=== PATIENT | male | born 1945 | race Caucasian/White ===

== ENCOUNTER 2016-11-04 09:28 | Day surgery (SDC) | payer MEDICARE, OTHER ==
[~2016-11-04 09:28] MED LIST: Lactated Ringers 1,000 ML IV SCH
[2016-11-04] MEDS ORDERED: fentaNYL 100 MCG/2 ML SDV ONE (11:19)
[2016-11-04] MEDS ORDERED: Propofol 200 MG/20 ML SDV ONE (11:19)
[2016-11-04 13:32] VITALS: BP 126/59
--- NOTE | 2016-11-04 18:13 | OR ---
PREOPERATIVE DIAGNOSIS: Positive Fit test. First colonoscopic exam. POSTOPERATIVE DIAGNOSIS: Normal colonoscopic exam. PROCEDURE PROPOSED: Total flexible colonoscopy. PROCEDURE DONE: Total flexible colonoscopy. INDICATION: This is a 70-year-old gentleman who was found to have a positive Fit test on recent physical, and he was referred for his first colonoscopic exam for screening purposes. TECHNIQUE: The patient was brought to the endoscopy suite, placed in left lateral decubitus position. He was sedated with propofol per GRIEF COUNSELLOR. A flexible video colonoscope was then passed transanally and under visualization advanced to the cecum. Examination revealed a normal ascending, transverse, descending, sigmoid, and rectal colon. There was no evidence of any diverticulosis, polyps, colitis, or any other abnormalities. The scope was then withdrawn. The patient tolerated the procedure well. IMPRESSION: Essentially, normal colonoscopic exam. PLAN: The patient is reassured. I felt that he should be good for 10 years before he needs a repeat exam and he would be at that time and would be depending on his health whether he needs it done or not. SCM: 11/04/2016 12:20:58 MODL: 11/04/2016 14:14:26 /[id number]
== END 2016-11-04 13:30 | disposition home or self-care (01) ==
LOC: VM.SDS 09:28
PROVIDERS: ATTEND Surgery
DX: Z12.11 Encounter for screening for malignant neoplasm of colon (principal); I25.10 Atherosclerotic heart disease of native coronary artery without angina pectoris; I73.9 Peripheral vascular disease, unspecified; I65.29 Occlusion and stenosis of unspecified carotid artery; E78.5 Hyperlipidemia, unspecified; I10 Essential (primary) hypertension; I25.2 Old myocardial infarction; K21.9 Gastro-esophageal reflux disease without esophagitis; I48.91 Unspecified atrial fibrillation; Z87.11 Personal history of peptic ulcer disease; Z79.02 Long term (current) use of antithrombotics/antiplatelets; Z87.891 Personal history of nicotine dependence; Z79.899 Other long term (current) drug therapy; Z90.49 Acquired absence of other specified parts of digestive tract; Z98.890 Other specified postprocedural states; Z95.5 Presence of coronary angioplasty implant and graft
CPT/HCPCS: G0121; J2704; J3010; J7120; 00810

== ENCOUNTER 2017-11-12 07:01 | Day surgery (SDC) | payer MEDICARE, OTHER ==
[2017-11-12] MEDS ORDERED: Bupivacaine 0.25%/EPINEPHrine 1:200,000 30 ML SDV ONE (07:46)
[2017-11-12] MEDS ORDERED: Succinylcholine 200 MG/10 ML MDV ONE ×2 (08:25→08:28)
[2017-11-12] MEDS ORDERED: Rocuronium 50 MG/5 ML Vial ONE (08:25)
[2017-11-12] MEDS ORDERED: Ondansetron 4 MG/2 ML SDV ONE (08:25)
[2017-11-12] MEDS ORDERED: fentaNYL 100 MCG/2 ML SDV ONE (08:26)
[2017-11-12] MEDS ORDERED: Propofol 200 MG/20 ML SDV ONE (08:27)
[2017-11-12] MEDS ORDERED: ePHEDrine 50 MG/ML SDV ONE (08:51)
[2017-11-12] MEDS ORDERED: Bupivacaine 0.25%/EPINEPHrine 1:200,000 30 ML SDV INFILT ONE ×2 (08:56)
[2017-11-12] MEDS ORDERED: ceFAZolin 1 GM Vial ONE (08:58)
[2017-11-12] MEDS ORDERED: Dexamethasone 10 MG/ML SDV ONE (08:59)
[2017-11-12] MEDS ORDERED: Neostigmine Methylsulfate 10 MG/10 ML MDV ONE (09:23)
[2017-11-12] MEDS ORDERED: Glycopyrrolate 0.2 MG/ML 2 ML SDV ONE (09:23)
--- NOTE | 2017-11-12 10:26 | OR ---
PREOPERATIVE DIAGNOSIS: Right direct inguinal hernia. POSTOPERATIVE DIAGNOSIS: Right direct inguinal hernia. PROCEDURE PROPOSED AND PROCEDURE DONE: Right direct inguinal hernia repair with mesh. DRIVE SHAFT AND STEERING POST REPAIRER: Massimo. INDICATION: This is a 71-year-old gentleman with a moderate-sized right inguinal hernia that is increasing in size over the last few years. I had done a previous left-sided repair 2-3 years ago and he comes in now for elective right inguinal hernia repair. TECHNIQUE: The patient was brought to the operative suite, given general endotracheal anesthetic, the surgical site had been marked. The right groin was trimmed and sterilely prepped and draped. An oblique incision was made in the right groin after locally anesthetizing the skin with 0.25% Marcaine with epinephrine. Dissection was carried down through the subcutaneous tissue to the underlying external oblique fascia. A self-retaining retractor was put in position. The external oblique fascia was then opened along the direction of fibers through the external ring. The ilioinguinal nerve was isolated and preserved throughout the dissection. The patient was found to have a large direct hernia sac coming right through the inguinal floor. The inguinal cord was from the hernia sac. A [employer] drain was passed around the cord. The hernia was then reduced and held in place with a large plug of mesh, which was anchored circumferentially with interrupted 0 Ethibond sutures. A piece of a keyhole flat mesh was then fashioned to the appropriate size and placed across the inguinal floor, anchored medially to the symphysis pubis, inferiorly to the inguinal ligament, superiorly to the internal and oblique fashion placed around the cord and anchored to the tissue. This was all performed with interrupted 0 Ethibond sutures. The cord and nerve were then placed back in the normal position as the external oblique fascia was closed over the cord with a running 3-0 Vicryl. Subcutaneous tissue reapproximated with interrupted 3-0 Vicryl and the skin closed with a subcuticular stitch of 4-0 Vicryl. A sterile dressing was applied. He tolerated the procedure well with minimal blood loss, was awakened and taken to recovery room in good condition. SCM: 11/12/2017 09:48:00 MODL: 11/12/2017 10:17:40 /[id number]
[2017-11-12 10:44] VITALS: BP 110/51
[2017-11-12] MEDS ORDERED: Acetaminophen/oxyCODONE 325-5 MG Tab PO PRN (10:45)
== END 2017-11-12 11:40 | disposition home or self-care (01) ==
LOC: VM.SDS 07:01
PROVIDERS: ATTEND Surgery
DX: K40.90 Unilateral inguinal hernia, without obstruction or gangrene, not specified as recurrent (principal); K21.9 Gastro-esophageal reflux disease without esophagitis; I25.10 Atherosclerotic heart disease of native coronary artery without angina pectoris; I10 Essential (primary) hypertension; I25.2 Old myocardial infarction; E78.5 Hyperlipidemia, unspecified; Z79.02 Long term (current) use of antithrombotics/antiplatelets; Z79.82 Long term (current) use of aspirin; Z79.899 Other long term (current) drug therapy; Z87.891 Personal history of nicotine dependence
CPT/HCPCS: 49505; A9270; C1781; J0330; J0690; J1100; J2405; J2704; J2710; J3010; J7120; 00834; J3490

== ENCOUNTER 2021-03-08 12:17 | Emergency (ER) | payer MEDICARE, OTHER ==
--- NOTE | 2021-03-08 12:41 | EDM.PDOC ---
ED HPI GENERAL MEDICAL PROBLEM - General Stated Complaint: BLEEDING POST SURGERY Time Seen by Provider: 03/08/21 12:41 Source of Information: Reports: Patient, RN, RN Notes Reviewed History Limitations: Reports: No Limitations - History of Present Illness INITIAL COMMENTS - FREE TEXT/NARRATIVE: Patient is a 75-year-old male who presents to ER with his with complaint of postop incisional bleeding from right knee surgery. Patient states surgery was , he was discharged yesterday, Wednesday. Patient states he was up and around doing passive ROM exercises per instructions from his surgeon when he noticed blood running down his leg. Patient states he had done therapy while in the hospital and had no issues with bleeding, pain, otherwise. Denies pain at this time. Patient states he remove the Patrice wrap yesterday, states he has been icing the knee as instructed. Patient states he is on Eliquis as well as Coreg. Patient also c/o intermittent dizziness. Patient states his BP has been low on and off since the surgery. States he takes both Lisinopril and Amlodipine for his BP. Onset: Today, Sudden - Related Data Allergies Allergy/AdvReac Type Severity Reaction Status Date / Time No Known Allergies Allergy Verified 11/12/17 07:36 Home Meds: Home Meds Clopidogrel [Plavix] 75 mg PO DAILY 05/10/13 [History] Multivitamin with Minerals [Multiple Vitamin] 1 tab PO DAILY 05/10/13 [History] Nitroglycerin [Nitrostat] 0.4 mg SL ASDIRECTED PRN 05/10/13 [History] amLODIPine [Norvasc] 10 mg PO DAILY 05/10/13 [History] carvediloL [Coreg] 12.5 mg PO BID 05/10/13 [History] lisinopriL [Prinivil] 20 mg PO DAILY 05/10/13 [History] ALPRAZolam [Xanax] 0.25 mg PO BEDTIME PRN 01/28/15 [History] Omeprazole [Prilosec] 20 mg PO DAILY PRN 01/28/15 [History] Aspirin [Halfprin] 81 mg PO DAILY 11/02/16 [History] Pravastatin Sodium 10 mg PO DAILY 11/02/16 [History] Melatonin 3 mg PO BEDTIME 11/10/17 [History] Past Medical History HEENT History: Reports: None Cardiovascular History: Reports: Afib, CAD, High Cholesterol, Hypertension, [place], PVD Other Cardiovascular History: stemi. ventricular tachy. external iliac artrery thrombosis. femoral bruit. coronary stent thrombosis Respiratory History: Reports: Sleep Apnea Gastrointestinal History: Reports: GERD, PUD Genitourinary History: Reports: None Musculoskeletal History: Reports: None Neurological History: Reports: None Psychiatric History: Reports: None, Other (See Below) Other Psychiatric History: insomnia Endocrine/Metabolic History: Reports: Other (See Below) Other Endocrine/Metabolic History: hyperglycemia Hematologic History: Reports: None Immunologic History: Reports: None Oncologic (Cancer) History: Reports: None Dermatologic History: Reports: None - Past Surgical History Head Surgeries/Procedures: Reports: None HEENT Surgical History: Reports: None Cardiovascular Surgical History: Reports: Cardiac Ablation, Carotid Stents, Other (See Below) Other Cardiovascular Surgeries/Procedures: angiogram GI Surgical History: Reports: Appendectomy, Hernia, Inguinal Musculoskeletal Surgical History: Reports: None Oncologic Surgical History: Reports: None Review of Systems - Review of Systems Review Of Systems: See Below ED EXAM, GENERAL - Physical Exam Exam: See Below Exam Limited By: No Limitations General Appearance: Alert, WD/WN, No Apparent Distress Eye Exam: Bilateral Eye: EOMI, Normal Inspection Ears: Normal External Exam, Hearing Grossly Normal Nose: Normal Inspection Throat/Mouth: Normal Inspection, Normal Voice, No Airway Compromise Head: Atraumatic, Normocephalic Neck: Normal Inspection, Supple, Non-Tender, Full Range of Motion Respiratory/Chest: No Respiratory Distress, Lungs Clear, Normal Breath Sounds, No Accessory Muscle Use, Chest Non-Tender Cardiovascular: Normal Peripheral Pulses, Regular Rate, Rhythm, No Edema, No Gallop, No JVD, No Murmur, No Rub Peripheral Pulses: 2+: Dorsalis Pedis (L), Dorsalis Pedis (R) GI/Abdominal: Normal Bowel Sounds, Soft, Non-Tender (Male) Exam: Deferred Rectal (Males) Exam: Deferred Back Exam: Normal Inspection, Full Range of Motion, NT Extremities: Joint Swelling (right knee post op), Limited Range of Motion (right knee, post op) Neurological: Alert, Oriented, CN II-XII Intact, Normal Cognition Psychiatric: Normal Affect, Normal Mood Skin Exam: Warm, Dry, Intact, Normal Color, No Rash Lymphatic: No Adenopathy ED TRAUMA EXTREMITY PROCEDURES - Additional/Other Procedure(s) Other (Free Text) Procedure(s): Post op dressing removed, cleaned with dry sterile 4x4. Pressure held manually at pinpoint area at the lower portion of the incision for 10 minutes. No oozing noted after pressure held. New Optifoam silver post op/surgical wound dressing applied. Departure - Departure Time of Disposition: 13:07 Disposition: Home, Self-Care 01 Condition: Good Clinical Impression: Postoperative bleeding from incision - Discharge Information *PRESCRIPTION DRUG MONITORING PROGRAM REVIEWED*: No *COPY OF PRESCRIPTION DRUG MONITORING REPORT IN PATIENT BOO: No Additional Instructions: Return to the ER with any worsening of problems Call you surgeon on Wednesday and follow up as directed Follow up with Dr. Brandon regarding your Blood pressure medications. Monitor BP at home.
[2021-03-08 14:05] VITALS: BP 94/45; PULSE 64
--- OUTSIDE RECORDS SUMMARY | 2021-03-10 08:06 | XMSREPORT ---
:1945 Author Organization and [facility] Address [address] [place] [address] [address] [place] [address] Care Team Providers Name Role Phone Brenton Primary Care Provider DO Brenton Attributed Provider Reason for Visit Auth/Cert (Routine) Status Reason Specialty Diagnoses / Referred By Referred To Procedures Contact Contact Continuity of Diagnoses Unilateral primary osteoarthritis, right knee Peripheral vascular disease, unspecified Mark Watson, Care Procedures ARTHROPLASTY KNEE CONDYLE & PLATEAU MEDIAL & LAT COMPARTMENTS MAUREEN BURRIS MD [address] [place] [address] [place] [address] Encounter Details Date Type Department Care Team Description 03/06/2021 - [facility] Shirley Mark, Primary 03/07/2021 Encounter [place] [facility] osteoarthritis of [address] [place] [address] [place] [address] L[place] [address] [phone] Allergies Active Allergy Reactions Severity Noted Date Comments Hmg-Coa-R Inhibitors Statin Contraindication - 019 Intolerance documented as of this encounter (statuses as of 03/07/2021) Medications Medication Sig Dispensed Refills Start Date End Date Status omeprazole (PRILOSEC) TAKE 1 CAPSULE 90 capsule 3 08/22/2020 Active 20 mg BY MOUTH EVERY capsuleIndications: DAY NEEDED Gastroesophageal reflux FOR HEARTBURN disease without esophagitis Additional Information Patient taking differently: 20 mg Oral One time a day prn, heartburn, Reported on 03/06/2021 Hemp Oil-Vanillyl Butyl Ether Apply topically as 0 Active (PROVENT HEMP PAIN RELIEF needed EXT) nitroglycerin (NITROSTAT) 0.4 Dissolve 1 tablet (0.4 20 tablet 1 02/03/2021 Active mg sublingual mg) under the tongue tabletIndications: Coronary Every 5 minutes as artery disease involving needed for chest pain gakona heart without angina pectoris, unspecified vessel or lesion type amLODIPine (NORVASC) 10 mg TAKE 1 TABLET BY MOUTH 90 tablet 3 02/03/2021 Active tabletIndications: Essential EVERY DAY hypertension Additional Information Patient taking differently: 10 mg Oral Bedtime, (No instructions reported), Reported on 03/06/2021 lisinopril (PRINIVIL, ZESTRIL) Take 1 tablet (20 90 tablet 3 0 02/03/2021 Active 20 mg tabletIndications: mg) by mouth 1 time Essential hypertension per day carVEDilol (COREG) 12.5 mg Take 1.5 tablets 270 tablet 3 02/03 Active tabletIndications: Coronary (18.75 mg) by mouth artery disease involving gakona 2 times a day with heart without angina pectoris, meals TAKE ONE unspecified vessel or lesion TABLET TWICE DAILY type, Essential hypertension Additional Information Patient taking differently: 18.75 mg Oral Two times a day with meals, (No instructions reported), Reported on 03/06/2021 pravastatin (PRAVACHOL) Take 1 tablet (10 90 tablet 3 02/04/20 21 Active 10 mg mg) by mouth 1 tabletIndications: time per day Insomnia clonazePAM (KLONOPIN) Take 1 tablet 30 tablet 5 02/03/2021 Active 0.5 mg tablet (0.5 mg) by mouth at bedtime as needed for insomnia apixaban (ELIQUIS) 5 MG Take 1 tablet (5 60 tablet 2 Active tabletIndications: mg) by mouth 2 Atrial Fibrillation times a day Indications: Atrial Fibrillation Multiple Vitamin Take 1 tablet by 0 Active (MULTIVITAMIN PO) mouth 1 time per day aspirin 81 mg enteric Take 81 mg by 0 Active coated tablet mouth 1 time per day acetaminophen (TYLENOL) Take 2 tablets 60 tablet 0 03/07/2021 Active 325 mg (650 mg) by mouth tabletIndications: every 4 hours as Status post total knee needed for mild replacement using pain cement, right docusate sodium Take 1 capsule 30 capsule 0 03/07/2021 Active (COLACE) 100 MG (100 mg) by mouth capsuleIndications: 2 times a day Status post total knee replacement using cement, right polyethylene glycol Take 3 238 g 0 03/07/2021 Active (MIRALAX) 17 GM/SCOOP teaspoonsful (17 powderIndications: g) by mouth 1 Status post total knee time a day as replacement using needed for cement, right constipation oxyCODONE (OXY-IR) 5 mg Take 1 to 2 25 tablet 0 03/07/2021 Active tablet (immediate tablets (5 to 10 release)Indications: mg) by mouth Status post total knee every 4 hours as replacement using needed (1 tablet cement, right for moderate pain, 2 tablets for severe pain) nalOXone (NARCAN) 4 [place] 1 spray (4 0.2 mL 0 03/07/2021 Active MG/0.1ML nasal mg) into one sprayIndications: nostril 1 time; Status post total knee may repeat in replacement using opposite nostril cement, right in 2 minutes if person does not respond. aspirin 81 mg chewable Take 1 tablet (81 0 5 03/06 Discontinued tablet mg total) by (Unknow n mouth 1 time per (Ph armacy Use)) day. amLODIPine (NORVASC) 10 TAKE 1 TABLET BY 90 tablet 3 0 02/03 Discontinued mg tabletIndications: MOUTH EVERY DAY /2 021 (Reorder) Essential hypertension lisinopril (PRINIVIL, TAKE 1 TABLET BY 90 tablet 3 02/26/202002/03 Discontinued ZESTRIL) 20 mg MOUTH EVERY DAY /2020 (Reorder) tabletIndications: Essential hypertension carVEDilol (COREG) 12.5 TAKE 1 TABLET BY 180 tablet 3 02/26/20 20 02/03 Discontinued mg tabletIndications: MOUTH TWICE A DAY /2020 (Reorder) Coronary artery disease WITH MEALS involving gakona heart without angina pectoris, unspecified vessel or lesion type, Essential hypertension pravastatin (PRAVACHOL) TAKE 1 TABLET BY 90 tablet 3 0 02/03 Discontinued 10 mg MOUTH ONCE DAILY (Re order) tabletIndications: Insomnia nitroglycerin Dissolve 1 tablet 20 tablet 1 03/13/202002/03 Discontinued (NITROSTAT) 0.4 mg (0.4 mg) (Reorder) sublingual the tongue Every tabletIndications: 5 minutes as Coronary artery disease needed for chest involving gakona heart pain without angina pectoris, unspecified vessel or lesion type clonazePAM (KLONOPIN) Take 1 tablet 30 tablet 5 09/11/2020 Discontinued 0.5 mg (0.5 mg) by mouth (R eorder) tabletIndications: at bedtime as Insomnia, unspecified needed for type insomnia diphenhydrAMINE-acetami Take 2 tablets by 0 03/07 Discontinued nophen (TYLENOL PM) mouth every night / (Stop Taking at 25-500 mg tablet at bedtime Di robby) apixaban (ELIQUIS) 5 MG Take 1 tablet (5 60 tablet 0 1 01/15 Discontinued tabletIndications: mg) by mouth (Cost) Atrial Fibrillation times a day Indications: Atrial Fibrillation documented as of this encounter (statuses as of 03/07/2021) Active Problems Problem Noted Date Paroxysmal atrial fibrillation 01/10/2021 On apixaban therapy 12/16/2020 Diet-controlled diabetes mellitus 09/11/2019 Overview: 6.5 in 09/10 Arthritis of knee 09/13/2017 Overview: bilateral moderate by x-ray had injectio ns with ortho 02/07 which helped for 4 mo, cortisone 03/10 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 High-grade stenosis of the left super ficial femoral artery. 2. Stenosis of the left external iliac a rtery. 08/07/13 High grade stenosis of the r ight JUNIOR ESTIMATOR, occluded left SFA stent and artery Operative Procedure: US guided perc acce ss of the left JUNIOR ESTIMATOR with pics, Angiogram aorta with bilateral runoff, Balloon dilation with 5 mm x 10mm balloon JUNIOR ESTIMATOR right and DCB ([id number]) right JUNIOR ESTIMATOR 06/2018 Right common femoral artery endar terectomy with pericardial patch angioplasty Insomnia 10/02/2013 Overview: Uses a rare xanax Atrial fibrillation 03/29/2013 Overview: Atrial fibrillation transitioned from in duced atrial tachycardia per EP study 02/2013, he had a pulmonary vein isoloation on 03/29/[address] fibrillation [address] Dr Zhou. Overnight oximetry test was normal. Femoral bruit 01/24/2013 Former smoker 12/26/2012 Overview: Quit smoking 12/03 after RI, nicotine pat ch caused insomnia Carotid artery stenosis 12/26/2012 Overview: Severe on R no stroke 70-99 % and modera te on L at 50-69 % by US in 12/03 Angio 04/06 60% right ICA stenosis and m ild left ICA disease Hernia, inguinal, left 12/26/2012 Hyperglycemia 12/26/2012 Overview: High BS at time of RI, A1c was 5.6 in , 6.4 in 03/06 Elevated LFTs 12/26/2012 Overview: At time of RI improved by d/c Low HDL (under 40) 12/26/2012 Overview: 29 in 12/03 Hyperlipidemia with target LDL less than 70 12/26/2012 Overview: lipitor and crestor caused aches Hypertension 12/26/2012 Overview: Likely untreated for years remembers hav ing 160 BP some 20 yrs ago Nonsustained ventricular tachycardia 12/12/2012 Overview: Nonsustained VT developed post Inferior RI Consistent with focal VT from inferior wall. Admit 01/03 Cath showed patent stents, Dr. 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 Patient recommended (by cardiology) to be on ASA and DPT for life as well as PLETAL 100 mg BID for 6 months STEMI (ST elevation myocardial infarction) 12/10/2012 Overview: Inferior wall SHELIA to the mid RCA 12/08/12 documented as of this encounter (statuses as of 03/07/2021) Resolved Problems Problem Noted Date Resolved Date terminal computer operator (current) use of anticoagulants 01/10/2021 02/26/2021 Unstable angina 04/23/2015 09/13/2017 documented as of this encounter (statuses as of 03/07/2021) Immunizations Name Administration Dates Next Due FLU VACCINE HIGH DOSE 65YR+(Fluzone) 03/13/2020, 03/15/2019, 03/14/2018, 03/18/2017, 03/16/2016, 03/19/2015, 03/21/2014, 02/24/2013 INFLUENZA HIGH DOSE (FLUZONE) 65 YEARS 02/03/2021 AND UP Moderna COVID-19 Vaccine 08/02/2020, 07/05/2020 Pneumococcal Conj PCV13 03/19/2015 Pneumococcal Polysaccharide PPSV23 02/06/2014 documented as of this encounter Social History Tobacco Use Types Packs/Day Years Used Date Former Smoker Cigarettes 1 30 Quit: 12/15/19 13 Smokeless Tobacco: Former User Chew Q uit: 12/08/2012 Alcohol Use Standard Drinks/Week Comments Yes 7 (1 standard drink = 0.6 oz pure alcoho l) Sexually Active Control Partners Comments Never Female Sex Assigned at Date Recorded Not on file documented as of this encounter Last Filed Vital Signs Vital Sign Reading Time Taken Comments Blood Pressure 136/69 03/07/2021 8:51 AM CDT Pulse 92 03/07/2021 8:51 AM CDT Temperature 36.8 C (98.3 F) 03/07/2021 8:48 AM CDT Respiratory Rate 16 03/07/2021 7:47 AM CDT Oxygen Saturation 94% 03/07/2021 8:51 AM CDT Inhaled Oxygen Concentration - - Weight 84.5 kg (186 lb 4.6 oz) 03/06/2021 6:09 AM CDT Height 175.3 cm (5' 9") 03/06/2021 6:07 AM CDT Body Mass Index 27.51 03/06/2021 6:07 AM CDT documented in this encounter Functional Status Functional Status Response Date of Assessment Is the person deaf or does he/she have serious difficulty No 06/20/2018 hearing? Is this person blind or does he/she have difficulty No 06/20/2018 seeing even when wearing glasses? Do you have difficulty with walking, balance, climbing Yes 12/13/2020 stairs, or had a fall in the last 3 months? Does the patient have difficulty dressing or bathing? No 06/22/2018 Because of a physical, mental, or emotional condition; No 06/22/2018 does this person have difficulty doing errands alone such as visiting a doctor's office or shopping? Cognitive Status Response Date of Assessment Because of a physical, mental, or emotional condition; No 06/22/2018 does this person have serious difficulty concentrating, remembering, or making decisions? documented as of this encounter Discharge Summaries Not on filedocumented in this encounter Discharge Instructions Marvin Roca RN - 03/07/2021 Reviewed "Orthopedic Discharge Education Guidelines" and "Pain management after You are Discharged" documents with patient. Paper copies were attached to AVS for patient to use as a reference for follow up questions. Preventing Blood Clots (Deep Vein Thrombosis) In the days and weeks after surgery, you have a higher chance of developing a deep vein thrombosis (DVT). This is a condition in which a blood clot or thrombus develops in a deep vein. They are most common in the leg. But, a DVT may develop in an arm, or another deep vein in the body. A piece of the clot, called an embolus, can separate from the vein and travel to the lungs. A blood clot in the lungsis called a pulmonary embolus (PE). This can cut off the flow of blood. It is a medical emergency and may cause . Deep vein thrombosis can occur even after you go home. Follow all instructions from your health careprovider. The following are some general guidelines about DVT prevention: Anticoagulant medication. If an anticoagulant was prescribed, make sure you follow all directionsabout taking it. Be sure you know what foods and medicines may interact. Also, ask your health care provider what to do if you forget to take a dose. Returning to activity. Follow all instructions about returning to activities. Be as active as youcan. This improves blood flow and helps prevent a clot from forming. When in bed or in a chair, continue with the ankle exercises you did in the hospital. Elevate your extremity above the level of yourheart to help prevent swelling. documented in this encounter Medications at Time of Discharge Medication Sig Dispensed Refills Start Date End Date acetaminophen (TYLENOL) Take 2 tablets (650 60 tablet 0 325 mg mg) by mouth every 4 tabletIndications: hours as needed for Status post total knee mild pain replacement using cement, right docusate sodium (COLACE) Take 1 capsule (100 30 capsule 0 100 MG mg) by mouth 2 times capsuleIndications: a day Status post total knee replacement using cement, right oxyCODONE (OXY-IR) 5 mg Take 1 to 2 tablets 25 tablet 0 tablet (immediate (5 to 10 mg) by release)Indications: mouth every 4 hours Status post total knee as needed (1 tablet replacement using for moderate pain, 2 cement, right tablets for severe pain) aspirin 81 mg enteric Take 81 mg by mouth 0 coated tablet 1 time per day Multiple Vitamin Take 1 tablet by 0 (MULTIVITAMIN PO) mouth 1 time per day apixaban (ELIQUIS) 5 MG Take 1 tablet (5 mg) 60 tablet 2 tabletIndications: by mouth 2 times a Atrial Fibrillation day Indications: Atrial Fibrillation amLODIPine (NORVASC) 10 TAKE 1 TABLET BY 90 tablet 3 2020 mg tabletIndications: MOUTH EVERY DAY Essential hypertension lisinopril (PRINIVIL, Take 1 tablet (20 90 tablet 3 02/03/ 021 ZESTRIL) 20 mg mg) by mouth 1 time tabletIndications: per day Essential hypertension carVEDilol (COREG) 12.5 Take 1.5 tablets 270 tablet 3 2020 mg tabletIndications: (18.75 mg) by mouth Coronary artery disease 2 times a day with involving gakona heart meals TAKE ONE without angina pectoris, TABLET TWICE DAILY unspecified vessel or lesion type, Essential hypertension pravastatin (PRAVACHOL) Take 1 tablet (10 90 tablet 3 02/03 10 mg tabletIndications: mg) by mouth 1 time Insomnia per day clonazePAM (KLONOPIN) Take 1 tablet (0.5 30 tablet 5 2020 0.5 mg tablet mg) by mouth at bedtime as needed for insomnia Hemp Oil-Vanillyl Butyl Apply topically as 0 Ether (PROVENT HEMP PAIN needed RELIEF EXT) omeprazole (PRILOSEC) 20 TAKE 1 CAPSULE BY 90 capsule 3 /0 05/2020 mg capsuleIndications: MOUTH EVERY DAY Gastroesophageal reflux NEEDED FOR HEARTBURN disease without esophagitis polyethylene glycol Take 3 teaspoonsful 238 g 0 021 (MIRALAX) 17 GM/SCOOP (17 g) by mouth 1 powderIndications: time a day as needed Status post total knee for constipation replacement using cement, right nalOXone (NARCAN) 4 [place] 1 spray (4 mg) 0.2 mL 0 202005/31/2022 MG/0.1ML nasal into one nostril 1 sprayIndications: Status time; may repeat in post total knee opposite nostril in replacement using 2 minutes if person cement, right does not respond. nitroglycerin Dissolve 1 tablet 20 tablet 1 02/03/2021 (NITROSTAT) 0.4 mg (0.4 mg) under the sublingual tongue Every 5 tabletIndications: minutes as needed Coronary artery disease for chest pain involving gakona heart without angina pectoris, unspecified vessel or lesion type documented as of this encounter Progress Notes Christo Ferreira PA - 03/07/2021 9:28 AM CDT ORTHOPAEDIC POST-OPERATIVE PROGRESS NOTE 03/07/2021 1 Day Post-Op Orthopaedic Patient of Mark Watson MD Subjective: Padmini Andre is a 75yr male recovering from Procedure(s): RIGHT TOTAL KNEE REPLACEMENT on 03/06/2021. Pain currently controlled, not having any pain at this time. Denies numbness, tingling. Denies current N/V, CP, SOB. Eating and drinking without difficulty. Doesreport that he felt dizzy yesterday, but feels better today. Objective: Temp Readings from Last 1 Encounters: 03/07/21 98.3 F (36.8 C) BP Readings from Last 1 Encounters: 03/07/21 136/69 Pulse Readings from Last 1 Encounters: 03/07/21 92 PHYSICAL EXAM: General: sitting up in recliner; alert and oriented; in no acute distress Surgical Extremity: Motor Function: intact distally; strength 5/5 and equal bilaterally with resisted DF/PF Skin warm, well-perfused Shelia's sign negative, no calf pain Dressing: clean, dry, and intact; no evidence of drainage; no irritation to surrounding tissue Lab Results Component Value Date WBC 10.8 03/04/2021 RBC 4.72 03/04/2021 HEMOGLOBIN 13.9 03/07/2021 HEMATOCRIT 45.5 03/04/2021 MCV 96.4 03/04/2021 MCH 32.2 03/04/2021 MCHC 33.4 03/04/2021 RDW 12.9 07/03/2013 PLTCOUNT 337 03/04/2021 NEUTROPCT 72.5 03/04/2021 LYMPHSPCT 15.6 03/04/2021 MONOSPCT 9.0 03/04/2021 EOSPCT 2.3 03/04/2021 BASOPHILPCT 0.6 03/04/2021 Assessment & Plan: 1. s/p Procedure(s): RIGHT TOTAL KNEE REPLACEMENT: Continue Cares. Internal Medicine consulted for non-orthopedic medical management. Discharge pendingcontinued pain control, as well as IM and therapy's approval. Activity: WBAT; PT/OT DVT prophylaxis: aspirin 325 mg PO ONCE DAILY Christo Ferreira PA-C YAT Adele Ta, [facility] - 03/06/2021 6:27 AM CDT 03/06/2021 6:27 AM CDT - Patient was seen by pharmacy. HOME MEDICATIONS have been reconciled and updated to match the patient's home usage. Medications added: none Medications removed: none Medications changed: aspirin is EC (rather than chewable) Prior to Admission Medications Prescriptions Last Dose Informant Patient Reported? Taking? Hemp Oil-Vanillyl Butyl Ether (PROVENT HEMP PAIN RELIEF EXT) Past Week at Unknown time Yes Yes Sig: Apply topically as needed Multiple Vitamin (MULTIVITAMIN PO) 03/02/2021 at Unknown time Yes Yes Sig: Take 1 tablet by mouth 1 time per day amLODIPine (NORVASC) 10 mg tablet 03/05/2021 at hs No Yes Sig: TAKE 1 TABLET BY MOUTH EVERY DAY Patient taking differently: Take 10 mg by mouth every night at bedtime apixaban (ELIQUIS) 5 MG tablet 03/02/2021 at hs No Yes Sig: Take 1 tablet (5 mg) by mouth 2 times a day Indications: Atrial Fibrillation aspirin 81 mg enteric coated tablet 03/05/2021 at am Yes Yes Sig: Take 81 mg by mouth 1 time per day carVEDilol (COREG) 12.5 mg tablet 03/06/2021 at 0330 No Yes Sig: Take 1.5 tablets (18.75 mg) by mouth 2 times a day with meals TAKE ONE TABLET TWICE DAILY Patient taking differently: Take 18.75 mg by mouth 2 times a day with meals clonazePAM (KLONOPIN) 0.5 mg tablet 03/05/2021 at hs No Yes Sig: Take 1 tablet (0.5 mg) by mouth at bedtime as needed for insomnia diphenhydrAMINE-acetaminophen (TYLENOL PM) 25-500 mg tablet 03/04/2021 at hs Yes Yes Sig: Take 2 tablets by mouth every night at bedtime lisinopril (PRINIVIL, ZESTRIL) 20 mg tablet 03/04/2021 at am No Yes Sig: Take 1 tablet (20 mg) by mouth 1 time per day nitroglycerin (NITROSTAT) 0.4 mg sublingual tablet has never had to use No No Sig: Dissolve 1 tablet (0.4 mg) under the tongue Every 5 minutes as needed for chest pain omeprazole (PRILOSEC) 20 mg capsule Greater than 1 Month at Unknown time No Yes Sig: TAKE 1 CAPSULE BY MOUTH EVERY DAY NEEDED FOR HEARTBURN Patient taking differently: Take 20 mg by mouth 1 time a day as needed (heartburn) pravastatin (PRAVACHOL) 10 mg tablet 03/06/2021 at 0330 No Yes Sig: Take 1 tablet (10 mg) by mouth 1 time per day Facility-Administered Medications: None Adele Ta RPh documented in this encounter H&P Notes Mark Watson MD - 03/06/2021 6:35 AM CDT H&P Updates and Indication for Care/Procedure: I have examined the patient, reviewed the H&P and the patient's condition has changed as follows: has pilonidal cyst I have explained the risks, including risk of COVID-19 exposure, benefits, indications, and alternatives for the procedure, answered questions and obtained the appropriate consent to proceed. Has had chronic piolnidal cyst, Spontaneously drained last wk, now sealed , benign but mahy explainrecent elevated wbc, although no systemic symptoms Discussed if draining would recommend post pne, but since intact asymptomatic would proceed with acceptance of slightly higher infection risk. He would like to proceed discussed the uncertainty of this documented in this encounter Procedure Notes Geneva Villalpando MD - 03/06/2021 11:43 AM CDTAssociated Order(s): NERVE BLOCK Procedure Documentation KIERSTEN: [id number] PATIENT NAME: Padmini Andre NERVE BLOCK Date/Time: 03/06/2021 11:43 AM Performed by: Geneva Villalpando MD Authorized by: Geneva Villalpando MD Comments: NERVE BLOCK Date Performed: 03/06/2021 Performed by: Geneva Villalpando Start Time: 640 End Time: 647 Procedure: Adductor Canal Block Type: Single Shot Laterality: Right Indication: Post-Op Pain Relief per surgeon request Risks and Benefits: Discussed the risks (including but not limited to, bleeding, infection, nerve damage, and intravascular injections) benefits and alternatives to the procedure Consent: Expressed understanding of the procedure, risks, benefits and alternatives and wished to proceed. Anesthesia Time Out: There was a time out called immediately prior to the procedure to confirm the correct patient, procedure and laterality. All necessary equipment was available and functioning. Monitoring: Continuous monitory of ECG, Pulse Ox, Heart Rate and Blood Pressure throughout procedure,. Positioning: Supine Sedation and Analgesia: 50 mcg Fentanyl Pannus Retraction: Not Needed Draping: Draping not needed Disinfectant Used: Skin was sterily prepped with Chlorhexadine and allowed to dry. Skin Infiltration: Lidocaine 2% Equipment used Ultrasound Regional Needle: Echogenic Needle Gauge: 22g Needle Length: 3 1/8" Technique: Anatomical Landmarks identified, Tissues were visualized with ultrasound, Local given in5ml increments with negative aspiration in-between. and Strict sterile technique was maintained throughout. Motor Response: none Lowest Stimulator Current: none mA Catheter: None Dressing: No Dressing Events: None Vital Signs: Please refer to Pre-Procedure Record Comments: Ultrasound Image recorded and Patient tolerated procedure well Medications: Base Medication: Ropivicaine 0.5% 20 ml Additives: Dexamethasone 10mg/ml 5 ml documented in this encounter Consult Notes Jess Morgan APRN-CNP - 03/06/2021 6:44 AM CDTAssociated Order(s): CONSULT INTERNAL MEDICINE Images from the original note were not included. HOSPITAL CONSULT NOTE Patient ID: Padmini Andre is a 75yr male. PCP: Roma Farris DO Attending Provider: Mark Watson MD CONSULT INTERNAL MEDICINE Consult performed by: Jess Morgan APRN-CNP Consult ordered by: Christo Ferreira PA Impression / Plan #Coronary artery disease Continue aspirin and Eliquis Nitroglycerin as needed #Hypertension Continue Norvasc, hold if systolic blood pressure less than 120 Continue Coreg, hold if systolic blood pressure less than 100 or heart rate less than 60 Hold lisinopril until a.m. labs BMP in a.m. #Atrial fibrillation status post ablation Continue Coreg, hold if systolic blood pressure less than 100 or heart rate less than 60 Restart home Eliquis in a.m. #Prediabetes Fasting glucose in a.m. Last hemoglobin A1c 6.4 on 02/26/2021 #Status post right total knee arthroplasty Managed by orthopedics Restart warfarin and aspirin for DVT prophylaxis per orthopedic preference Tylenol scheduled for pain, oxycodone as needed Hemoglobin in a.m., preop hemoglobin 15.2 PT/OT to see Case management to assist with discharge planning. Patient plans to discharge home with his . #Hyperlipidemia Continue pravastatin #Peripheral vascular disease Continue Eliquis and aspirin #Insomnia Continue Klonopin #GERD Continue omeprazole #Overweight BMI 27.51 Chief Complaint / HPI HPI Padmini Andre is admitted under the orthopedic service status post right total knee arthroplasty on 03/06/2021. Spinal anesthesia with adductor canal block. Estimated blood loss 200 mL. Internal medicine consultation requested to assist with co-managment postoperatively. Patient was seen at his bedside. He currently denies any pain, chest pain, shortness of breath, nausea, and headache. He does have some numbness and tingling remaining from his anesthesia. He has not voided since surgery. Patient did have a hypotensive episode preoperatively. Interventions by anesthesia. No further episodes at this time. Patient has had right knee pain for years. Preoperatively he rates his pain 7 8 out of 10. He had difficulty with ambulation and activities of daily living. He tried rest, activity modification and cortisone injections in the past for pain control. He was not using an assistive device at home prior to surgery. Preop labs reviewed: Hemoglobin 15.2 on 03/04/2021, creatinine 1.15, GFR 62 on 02/26/2021 EKG reviewed from 12/13/2020: Sinus rhythm with occasional PVCs Echocardiogram reviewed from 10/14/2020: Ejection fraction 75%, mild to moderate aortic regurgitation Medications Current Facility-Administered Medications Medication ceFAZolin (ANCEF) 2000 mg/20 mL sterile water IV syringe ondansetron (ZOFRAN) injection solution 4 mg tranexamic acid (CYKLOKAPRON) injection 1,000 mg sodium chloride 0.9% flush (adult) 10 mL lactated ringers IV solution lidocaine PF (XYLOCAINE-MPF) 1 % preservative free injection solution 0.1- 0.3 mL nalOXone (NARCAN) injection solution (vial) 0.4 mg nalOXone (NARCAN) injection solution (vial) 0.2 mg midazolam (VERSED) injection solution 0.25-2 mg fentaNYL 100 mcg/2 mL preservative free injection solution 25-100 mcg dexAMETHasone sodium phosphate 5 mg in ropivacaine 0.5 % 100 mg Peripheral Nerve Block InjectionSyringe Allergies Allergies Allergen Reactions Statins [Hmg-Coa-R Inhibitors] Statin Contraindication - Intolerance Medical / Surgical / Family History Past Medical History: Diagnosis Date Arrhythmia 2013 nonsustained VT, junctional rhythm post RI Arthritis Atrial fibrillation (HCC) Carotid artery stenosis Coronary artery disease Diet-controlled diabetes mellitus ([facility]) 09/11/2019 GERD (gastroesophageal reflux disease) Hernia, inguinal, left Hyperlipidemia Hypertension PUD (peptic ulcer disease) PVD (peripheral vascular disease) ([facility]) STEMI (ST elevation myocardial infarction) ([facility]) 2013 inferior RI Past Surgical History: Procedure Laterality Date ANGIOGRAM lower ext with stents APPENDECTOMY ATRIOVENTRICULAR NODE ABLATION CLINICAL OPERATIONS SPECIALIST cardiac ablation for a-fib COLONOSCOPY ENDARTERECTOMY Right 06/22/2018 Right femoral endarterectomy with patch angioplasty by Dr. Alex in [place], [place] ENDARTERECTOMY Right 06/22/2018 Procedure: RIGHT FEMORAL ENDARTERECTOMY;; Surgeon: Wild Alex DO INGUINAL HERNIA Left 01/22/2015 Procedure: HERNIORRAPHY INGUINAL ADULT;; Surgeon: Mark Skinner MD ZZSTENT cardiac stents x2 Family History Problem Relation Age of Onset Heart Disease Mother Other Mother alzheimers Heart Disease Father 62 RI Not otherwise listed - Cancer Brother Heart Disease Brother Arrhythmia Brother Not otherwise listed - Cancer Paternal Aunt Not otherwise listed - Cancer Paternal Uncle Anesth Problems Neg Hx Social History Social History Tobacco Use Smoking status: Former Smoker Packs/day: 1.00 Years: 30.00 Pack years: 30.00 Types: Cigarettes Quit date: 12/14/2012 Years since quittin.2 Smokeless tobacco: Former User Types: Chew Quit date: 12/08/2012 Substance Use Topics Alcohol use: Yes Alcohol/week: 7.0 standard drinks Types: 7 Cans of beer per week Drug use: No ROS Review of Systems Constitutional: Negative. HENT: Negative. Eyes: Negative. Respiratory: Negative for chest tightness and shortness of breath. Cardiovascular: Negative for chest pain. Gastrointestinal: Negative for nausea and vomiting. Genitourinary: Positive for difficulty urinating. Musculoskeletal: Positive for arthralgias. Skin: Negative. Neurological: Negative for headaches. Hematological: Negative. Psychiatric/Behavioral: Negative. Physical Exam BP 142/62 | Pulse 61 | Temp 97.7 F (36.5 C) | Resp 17 | Ht 1.753 m (5' 9") | Wt 84.5 kg (186 lb 4.6 oz) | SpO2 96% | BMI 27.51 kg/m Physical Exam Vitals and nursing note reviewed. Constitutional: General: He is not in acute distress. Appearance: Normal appearance. He is well-developed. He is not diaphoretic. HENT: Head: Normocephalic and atraumatic. Eyes: Conjunctiva/sclera: Conjunctivae normal. Cardiovascular: Rate and Rhythm: Normal rate and regular rhythm. Pulses: Normal pulses. Heart sounds: Normal heart sounds. No murmur heard. No friction rub. No gallop. Pulmonary: Effort: Pulmonary effort is normal. No respiratory distress. Breath sounds: Normal breath sounds. No wheezing or rales. Abdominal: General: Bowel sounds are normal. There is no distension. Palpations: Abdomen is soft. Tenderness: There is no abdominal tenderness. Musculoskeletal: Cervical back: Normal range of motion. Right knee: Decreased range of motion. Skin: General: Skin is warm and dry. Neurological: Mental Status: He is alert and oriented to person, place, and time. Psychiatric: Behavior: Behavior normal. Thought Content: Thought content normal. Judgment: Judgment normal. Labs Labs (Last day) 03/06/21 0606 - 03/06/21 0606 GLUCOSE POINT OF CARE 03/06/21 0606 GLUCOSE POINT OF CARE Glucose POC 70-99 (mg/dL) 185 Medical Decision Making MDM Reviewed: previous chart, nursing note and vitals Reviewed previous: labs and ECG (echo) documented in this encounter Miscellaneous Notes Clinical Team - Janet Taylor RN - 03/07/2021 4:12 PM CDT Patient discharged to home via wheelchair and transport staff. Discharge instructions provided utilizing discharge AVS and discharge video. Patient verbalized understanding via teach back. Questions answered. Personal belongings sent home with patient. hysical Therapy - Giselle Velazquez, PT - 03/07/2021 1:40 PM CDT Physical Therapy Orthopedic Treatment/Discharge Note Date: 03/07/2021 pm Subjective: Alert and Oriented. Precautions: TKA (no twisting, no kneeling), WBAT Recommendation/Assessment: Patient ready for discharge from acute hospital service, all goals met. Patient anticipating discharge to home with spouse and to continue with OPPT in [facility]. Family/cross country and track and field coach present for PT session: (see flowsheet) Objective: Lab Results Component Value Date HEMOGLOBIN 13.9 03/07/2021 Supine to/from sit: not assessed this p.m., independent in a.m. Sit to/from stand: SBA to independent at FWW Sitting Balance: good Standing Balance: Good with FWW Gait: Patient ambulated 1 x 210 feet with FWW and contact guard to minimal assist of 1. No bucklingthis p.m., steady reciprocal gait. Stairs: Up/down 10 steps x 1 with railing and FWW, CGA of 1. Patient verbalizing understanding of gait sequence on stairs, demonstrating ability to complete as appropriate. ROM: 5-95 degrees R knee Exercises: Bilateral active ankle pumps. On surgical LE, 10 reps of quad sets and hamstring sets with good quality strength. AAROM supine heel slides, using sheet assist to facilitate stretch. SAQ, SLR and LAQ are performed independently in recliner. Gentle stretching performed to improve knee flexion and extension. Patient follows home exercise program with exercise performance. Pain: (0-10 scale) At rest: 0 With Activity: 3 "not that bad" in ambulation Education: Patient was educated on precautions, exercise progression, transfer techniques, gait and mobility progression today through explanation, demonstration and handout. They accepted teaching and verbalized understanding, demonstrated understanding and will need reinforcement. Equipment: Patient has 4 WW with hand brakes and seat here at hospital. Patient and spouse note katya has FWW at home. As spouse utilizing 4WW here during her visit, PT noting patient may want to use the FWW. Patient and spouse educated on appropriate fit for FWW. Both verbalized understanding. Plan: Patient discharged from hospital PT service. Goals met as established 03/06. Patient to continue OPPT at [facility] in [place]. Time Treatment Occurred: Gait: 15 minutes Therapeutic Exercise: 15 minutes Therapeutic Activity: 0 minutes TOTAL TIMED CODES: 30 minutes TREATMENT TOTAL TIME: 30 minutes are Planning - Janet Taylor RN - 03/07/2021 10:27 AM CDT Problem: ACUTE PAIN Goal: CLIENT SATISFACTION: PAIN MANAGEMENT Description: DEFINITION: Extent of positive perception of nursing care to relieve pain. 1=Not at all satisfied, 2=Somewhat satisfied, 3=Moderately satisfied, 4=Very satisfied, 5=Completely satisfied. Flowsheets (Taken 03/07/2021 1016) Initial Score: 3 Target Score: 4 Plan of care reviewed with: Patient Patient specific goal for the day: Patient will have adequate pain control Patient specific goal for the stay: Patient will be medicated with oral analgesics for adequate paincontrol Achieve goal for stay: By discharge Patient Progress: Patient medicated with oxycodone, on reasssessment was comfortable Problem: IMPAIRED PHYSICAL MOBILITY Goal: MOBILITY Description: DEFINITION: Ability to move purposefully in own environment independently with or without assistive device. 1=Severely compromised / Total assistance: Performs less than 25% of activity; 2=Substantially compromised / Maximal assistance: Performs 25-49% of activity; 3=Moderately compromised / Moderate assistance: Performs 50-74% of activity; 4=Mildly compromised / Modified independence: Needs assistive device, supervision, minimal contact,or safety is a concern; 5=Not compromised / Complete independence. Flowsheets (Taken 03/07/2021 1019) Initial Score: 3 Target Score: 5 Plan of care reviewed with: Patient Patient specific goal for the day: Patient will ambulate Patient specific goal for the stay: Patient will work with therapist and pass goals Patient Progress: Patient seen walking with therapy, tolerated well YATCeliana Bellamy - Sharona Gonzáles RN - 03/07/2021 9:02 AM CDT CASE MANAGEMENT FINAL TRANSITION PLAN TRANSITION DATE: 03/07/21 TRANSITION TIME: at bedside nurse's discretion, once therapy goals have been met TRANSITION AGENCY TYPE: Home INTENDED PAYER SOURCE FOR AGENCY: Medicare Payor: MEDICARE / Plan: OPTION 1 MEDICARE / Product Type: Medicare / TRANSITION DESTINATION: Home with family support. DOES ACCEPTING FACILITY REQUIRE COVID TESTING BEFORE DISCHARGE: N/A TRANSITION TRANSPORTATION: Family Car TRANSPORTATION PAYMENT: Not applicable TRANSITION CHOICES OFFERED: Home Health: Nurse, Occupational Therapy and Physical Therapy Home: Family/Friend Support Outpatient Therapy: Physical Therapy DOES THE PATIENT HAVE A PRIMARY CARE PHYSICIAN? Yes Roma Farris DO PATIENT / SUBSTITUTE DECISION MAKER GOAL UPON TRANSITION: First Choice: Home: Family/Friend Support PATIENT CHOICE EDUCATION: Not applicable MEDICARE 3 IP MIDNIGHT CRITERIA MET: N/A RESOURCE(S) PROVIDED: Outpatient Therapy Home Health if recommended DOES PATIENT HAVE CLOTHING TO WEAR AT DISCHARGE? Yes ANTICIPATED MODE OF TRANSPORT TO AND FROM FOLLOW UP APPOINTMENTS: Family Car VERIFIED CORRECT PHARMACY IS ENTERED FOR DISCHARGE: Yes - Pharmacy: [facility] METHOD OF PRESCRIBING MEDICATIONS: Medications to be E-prescribed to above pharmacy TRANSITION ROUNDING COMPLETED WITH THE FOLLOWING: Patient / family Videotape Operator Bedside mortgage loan coordinator RN Discussed in person COMMENTS / PATIENT AND FAMILY RESPONSE TO PLAN: Discussed with interdisciplinary team. Plan is to return home with his spouse's support. Hopeful to go home later today. PT to see again this afternoon. Education provided in regards to follow-up care and recovery. Questions answered. No further concerns noted at this time. Will continue to follow providers and therapy recommendations for safe discharge planning. Will continue to reassess any discharge needs. SPECIAL TRANSITION DAY INSTRUCTIONS TO NURSE / MD: Home with family support. Patient prefers to do OPPT at: [facility] in [place], [place] CURRENT READMISSION RISK SCORE / HANDOFF: Predictive Risk Score Risk of Unplanned Readmission: 6.6 Handoff given: N/A SIGNED: Sharona Gonzáles RN Case Manager - Orthopedics [facility] Physical Therapy - Giselle Velazquez, PT - 03/07/2021 8:42 AM CDT Physical Therapy Orthopedic Treatment Note Date: 03/07/2021 Subjective: Alert and Oriented. Precautions: TKA (no twisting, no kneeling), WBAT Recommendation/Assessment: Anticipate that patient will be ready to go post afternoon session or tomorrow. Family/cross country and track and field coach present for PT session: (see flowsheet) Objective: Lab Results Component Value Date HEMOGLOBIN 13.9 03/07/2021 Supine to/from sit: independent Sit to/from stand: CGA to SBA Sitting Balance: good Standing Balance: Good with FWW Gait: Patient ambulated 1 x 140 feet with FWW and contact guard to minimal assist of 1. Patient's right knee buckled briefly x 1 within first 10 feet of ambulation, patient not loosing balance supporting self with (B) UEs on FWW, L LE, PT providing minimal assist. No further episodes through remainder of distance. Stairs: Not assessed. ROM: 5-95 degrees R knee Exercises: Bilateral active ankle pumps. On surgical LE, 10 reps of quad sets and hamstring sets with good quality strength. AAROM supine heel slides, using sheet assist to facilitate stretch. SAQ, SLR and LAQ are performed with sheet assist. Gentle stretching performed to improve knee flexion and extension.Patient follows home exercise program with exercise performance. Vitals: BP prior to PT session in supine: 147/69, In sitting prior to gait: 147/64, In standing3 minutes post assuming standin/67. HR 82, O2 Sats: 95% on room air. Pain: (0-10 scale) At rest: 1 With Activity: 2 or 3 Education: Patient was educated on precautions, exercise progression, transfer techniques, gait and mobility progression today through explanation, demonstration and handout. They accepted teaching and verbalized understanding, demonstrated understanding and will need reinforcement. Plan: Continue with PT plan of care. Time Treatment Occurred: 8:42 Gait: 15 minutes Therapeutic Exercise: 15 minutes Therapeutic Activity: 0 minutes TOTAL TIMED CODES: 30 minutes TREATMENT TOTAL TIME: 30 minutes are Planning - Lilia Álvarez RN - 03/07/2021 4:51 AM CDT Problem: ACUTE PAIN Goal: CLIENT SATISFACTION: PAIN MANAGEMENT Description: DEFINITION: Extent of positive perception of nursing care to relieve pain. 1=Not at all satisfied, 2=Somewhat satisfied, 3=Moderately satisfied, 4=Very satisfied, 5=Completely satisfied. Flowsheets (Taken 03/07/2021 043) Patient Progress: pt denies pain to knee. reports having stiffness with movement only. using ice packs to knee. pt declines need for pain meds so far. instructed pt to alert staff if needs pain meds & to take prn oxy prior to PT this morning. will continue to monitor Problem: IMPAIRED PHYSICAL MOBILITY Goal: MOBILITY Description: DEFINITION: Ability to move purposefully in own environment independently with or without assistive device. 1=Severely compromised / Total assistance: Performs less than 25% of activity; 2=Substantially compromised / Maximal assistance: Performs 25-49% of activity; 3=Moderately compromised / Moderate assistance: Performs 50-74% of activity; 4=Mildly compromised / Modified independence: Needs assistive device, supervision, minimal contact,or safety is a concern; 5=Not compromised / Complete independence. Flowsheets (Taken 03/07/2021433) Patient Progress: pt is up with 1 assist using walker & gait belt. pt sat up in recliner til bedtime. walked to bathroom then to bed. gait steady Problem: RISK FOR DECREASED CARDIAC TISSUE PERFUSION Goal: ACTIVITY TOLERANCE Description: DESCRIPTION: Physiologic response to energy-consuming movements with daily activities. 1=Severly compromised, 2=Substantially compromised, 3=Moderately compromised, 4=Mildly compromised, 5=Not compromised. Flowsheets (Taken 03/07/2021433) Initial Score: 3 Target Score: 4 Plan of care reviewed with: Patient Patient specific goal for the day: Pt will maintain stable VS Patient specific goal for the stay: Remain at baseline Achieve goal for stay: By discharge Patient Progress: pt had episode of hypotension with therapy yesterday. pt has hx A fib & CAD. vitals have remianed stable throughout shift. will continue to monitor. YATCare Planning - Jackeline Pinto RN - 03/06/2021 7:30 PM CDT Problem: ACUTE PAIN Goal: CLIENT SATISFACTION: PAIN MANAGEMENT Description: DEFINITION: Extent of positive perception of nursing care to relieve pain. 1=Not at all satisfied, 2=Somewhat satisfied, 3=Moderately satisfied, 4=Very satisfied, 5=Completely satisfied. 03/06/20211927 by Jackeline Pinto RN Outcome: NOC Rating 3 Flowsheets (Taken 03/06/20211927) Initial Score: 3 Target Score: 4 Plan of care reviewed with: Patient Patient specific goal for the day: Pt will ask for PRN pain medications as needed Patient specific goal for the stay: Pt will go home on oral pain medications Achieve goal for stay: By discharge Patient Progress: No complaints of pain at this time. Ice to right knee. 03/06/20211905 by Jackeline Pinto RN Outcome: NOC Rating 3 Flowsheets (Taken 03/06/20211905) Initial Score: 3 Target Score: 4 Plan of care reviewed with: Patient Patient specific goal for the day: Pt will ask for PRN pain medications as needed Patient specific goal for the stay: Pt will go home on oral pain medications Achieve goal for stay: By discharge Problem: IMPAIRED PHYSICAL MOBILITY Goal: MOBILITY Description: DEFINITION: Ability to move purposefully in own environment independently with or without assistive device. 1=Severely compromised / Total assistance: Performs less than 25% of activity; 2=Substantially compromised / Maximal assistance: Performs 25-49% of activity; 3=Moderately compromised / Moderate assistance: Performs 50-74% of activity; 4=Mildly compromised / Modified independence: Needs assistive device, supervision, minimal contact,or safety is a concern; 5=Not compromised / Complete independence. Outcome: NOC Rating 3 Flowsheets (Taken 03/06/20211927) Initial Score: 3 Target Score: 4 Plan of care reviewed with: Patient Patient specific goal for the day: pt will ambulate in room Patient specific goal for the stay: Pt will pass PT/OT therapies. Achieve goal for stay: By discharge Patient Progress: Pt got up from bed and ambulated to the chair. Assist x2, FWW, and gait belt. Tolerated well. YATCSharona Sotomayor RN - 03/06/2021 2:40 PM CDT CASE MANAGEMENT / SOCIAL SERVICE TRANSITION PLAN - INITIAL ASSESSMENT TRANSITION PLAN: goal is home with OPPT Patient prefers to do OPPT at: [facility] in [place], [place] BARRIERS TO TRANSITION: Awaiting Therapy Recommendations / progress towards goals for safety Medical barriers: pain control, lightheadedness ASSESSMENT OF NEEDS AND SUPPORT TEAM/OVEN TENDER: Discussed with interdisciplinary team. Met with patient at the patient's bedside. Introduced Case Management and role in patient care. Patient lives with his spouse, Jazmine in [place], [place]. Patient was independent with ADLs prior tothis admissions. Patient's goal upon discharge is to return home with his spouse's support. Plans to do OPPT at discharge. Education provided in regards to anticipated plan of care. Encouraged patient to voice any concerns. Patient voiced understanding. Questions answered. ADMISSION DX: Primary osteoarthritis of right knee [M17.11] PVD (peripheral vascular disease) (HCC) [I73.9] PATIENT STATUS: Ambulatory Surgery RELEASE OF INFORMATION: Yes -- verbal for: discharge planning SOURCES OF INFORMATION (See demographics for contact information): Medical Doctor Medical Record Nurse: Bedside Nurse Practitioner/Physician's Scrap Worker Occupational Therapy Patient Physical Therapy CURRENT LIVING SITUATION / LEVEL OF ASSISTANCE: Lives with spouse Independent Lives in a multilevvel home with 3 stairs to enter. Has 10 stairs to bedroom/bathroom. COMMUNITY SERVICES: None FINANCIAL CONCERNS: No Concerns PRIMARY CARE PHYSICIAN: Yes Roma Farris DO [phone] [place] [id number] : No LANGUAGE / COMMUNICATION BARRIERS: No PATIENT / SUBSTITUTE DECISION MAKER GOAL UPON TRANSITION: First Choice: Home with OPPT THERAPY ANTICIPATED AT DISCHARGE: Yes PATIENT CHOICE EDUCATION: Not applicable RESOURCE(S) PROVIDED: OPPT ANTICIPATED MODE OF TRANSPORT AT DISCHARGE: Family Car - spouse to drive ANTICIPATED TRANSPORTATION TO FOLLOW UP/THERAPY: spouse VERIFIED CORRECT PHARMACY IS ENTERED FOR DISCHARGE: Patient agreeable with Med to Bed [facility] METHOD OF PRESCRIBING MEDICATIONS: Medications to be E-prescribed to above pharmacy TRANSITION ROUNDING COMPLETED WITH THE FOLLOWING: Patient / family Videotape Operator Bedside mortgage loan coordinator RN Therapy Discussed in person CURRENT READMISSION RISK SCORE / HANDOFF: Predictive Risk Score Risk of Unplanned Readmission: 8.6 Handoff given: N/A Please refer to readmission risk assessment flowsheet for further details. SIGNED: Sharona Gonzáles RN Case Manager - Orthopedics [facility] Physical Therapy - Berenice Dickinson PT - 03/06/2021 1:52 PM CDT Physical Therapy Orthopedic Evaluation Date: 03/06/2021 PM Assessment/Recommendations: Yan is s/p R TKA this morning. He was able to stand at bedside but hisBP decreased to 74/57, so no ambulation was attempted. His goal is to return home with when medically ready. PT will follow. Referring Physician: Christo Ferreira PA Diagnosis/Surgical Procedure and Date: OA R knee, s/p R TKA on 03/06/2021 Significant PMH: See chart Physician Orders: Gait and exercise Weight Bearing Status: WBAT Precautions: No kneeling, no twisting Status Prior to Hospitalization/Surgical Procedure: Current Living Environment: house Stairs to Enter Home: 3 Railing: no Stairs to Bedroom or Bathroom: 10 Railing: yes Lives: With Ambulation Status: Independent Equipment Owned: 4WW and FWW Patient/Family Concerns: Feels light headed when standing Patient Goals: Home with Other: BP was taken supine: 115/63, sitting 120/72, and standing 74/57. Nurse was present and recommended we not move him to the chair, so he was returned to supine.. Current Status: Cognition: Alert and Orientated Observation: Cold pack on R knee before and after PT. ROM: 5-90 degrees R knee Transfers: Supine to/from Sit: Independent Sit to/from Stand: Contact guard assist Balance: Sitting: Good Standing: Good with FWW Gait: Not attempted due to decreased BP in standing. Stood well with FWW and Contact guard assist Stairs: Plans to try tomorrow. Exercises: Patient completes 10 repetitions of TKA exercises with min assistance for active exercises. Good strength with isometric exercises. Pain Level: 1/10 With exercise Patient/Family Education: Reviewed precautions, role of the physical therapist, and discussed anticipated outcome goals. Other: Family Present during Evaluation: No Treatment: Time Treatment Occurred: 1311 Evaluation: X Gait: 0 minutes Exercise: 15 minutes Therapeutic Activity: 10 minutes TOTAL TIMED CODES: 25 minutes TREATMENT TOTAL TIME: 35 minutes Plan: Follow daily for gait traning, therapeutic exercise, therapeutic activity, and education. Goals: By hospital discharge or within 2-3 days. Patient involved in developing/progressing goals and treatment plan. Supine to sit with no assist. Sit to stand with no assist. Ambulate 200 feet on level surfaces with standby assist and appropriate assistive device. Up/down 10 steps with min assist and appropriate assistive device. Achieve 10-80 degrees of knee flexion. Independent or able to instruct caregiver in home exercise program. Appropriate assistive device available for ambulation. Kely Dickinson PT Alpha pager [phone] Clinical Team - Joanne Juarez RN - 03/06/2021 1:45 PM CDT Physical therapy in room to ambulate patient. Vitals signs checked and bp down to 74/57 upon standing at bedside. Assisted to lying back down with improvement of BP. See graphics for details. Notified internal medicine of patient condition. linical Team - Marvin Dye RN - 03/06/2021 11:20 AM CDT Nurse reported Pt had open area on coccyx upon arrival to floor. Skin appears as if it has been denuded in the past. Barrier cream and sacral mepilex applied. Care Planning - Joanne Juarez RN - 03/06/2021 11:10 AM CDT Problem: ACUTE PAIN Goal: CLIENT SATISFACTION: PAIN MANAGEMENT Description: DEFINITION: Extent of positive perception of nursing care to relieve pain. 1=Not at all satisfied, 2=Somewhat satisfied, 3=Moderately satisfied, 4=Very satisfied, 5=Completely satisfied. Outcome: NOC Rating 3 Flowsheets (Taken 03/06/2021 1108) Initial Score: 3 Target Score: 4 Plan of care reviewed with: Patient Patient specific goal for the day: pain control at or below tolerable pain level Patient specific goal for the stay: pain control at or below tolerable pain level with oral pain medications Achieve goal for stay: By discharge Patient Progress: No complaints of pain at this time. Ice to right knee. Note: No complaints of pain at this time. Ice to right knee. Problem: IMPAIRED PHYSICAL MOBILITY Goal: MOBILITY Description: DEFINITION: Ability to move purposefully in own environment independently with or without assistive device. 1=Severely compromised / Total assistance: Performs less than 25% of activity; 2=Substantially compromised / Maximal assistance: Performs 25-49% of activity; 3=Moderately compromised / Moderate assistance: Performs 50-74% of activity; 4=Mildly compromised / Modified independence: Needs assistive device, supervision, minimal contact,or safety is a concern; 5=Not compromised / Complete independence. Outcome: NOC Rating 3 Flowsheets (Taken 03/06/2021 1108) Initial Score: 3 Target Score: 4 Plan of care reviewed with: Patient Patient specific goal for the day: ambulate Patient specific goal for the stay: meet goals as outlined per PT/OT Achieve goal for stay: By discharge Patient Progress: Will ambulate with PT this afternoon. Note: Will ambulate with PT this afternoon. Clinical Team - Joanne Juarez RN - 03/06/2021 10:10 AM CDT Upon transfer to room 1 from PACU, skin assessment completed with Amrita MORRISSEY. Upon skin assessment including pressure points findings include: no skin breakdown noted to pressurepoints except patient has open area to coccyx/buttock area that he had prior to admission. Patient reports a cyst to this area. Barrier cream and sacral mepilex applied. Will manage moisture, ambulated frequently and continue to monitor skin condition. Clinical Team - Joanne Juarez RN - 03/06/2021 10:10 AM CDT Patient to room 471 from PACU. Report and orders received. Plan of care reviewed. Settled and oriented to room. No complaints of pain at this time. Will ambulate with PT this afternoon. ostOp Progress Note - Mark Watson MD - 03/06/2021 8:44 AM CDT Immediate Post-Operative / Post Procedure Progress Note Att. Phys: Mark Watson MD Pt. Type: Ambulatory Surgery Operative Date: 03/06/2021 Surgeon: Surgeon(s) and Role: * Mark Watson MD - Primary Scrap Worker: Graphic Art Sales Representative : Gosia Mcfarlane RN; Jen Culp RN Scrub Person : Bobbi Malcolm ST; Yvette Edmond ST Gaming Cage Worker: Christo Ferreira PA The skilled assistance of my neurosurgical nurse, Christo pederson was necessary because instrumentation dressing closure positioning retraction. They participated in positioning of the patient, assistance with the procedure, assistance with wound closure and dressing application. Pre-Operative Diagnosis: Pre-Op Diagnosis Codes: * Primary osteoarthritis of right knee [M17.11] * PVD (peripheral vascular disease) ([facility]) [I73.9] Post-Operative Diagnosis: same Anesthesia Type: spinal Operative Procedure: Procedure(s): RIGHT TOTAL KNEE REPLACEMENT - Wound Class: Clean ID Type Source Tests Collected by Time A : Right knee bone and tissue Tissue Knee TISSUE EXAM Mark Watson MD 03/06/2021 0736 no implants used for procedure Fluids Given: See Anesthesia Record Urine Output: See Anesthesia Record Estimated Blood Loss: 200 mL Drains: none Findings: See op note Complications: none Postoperative Condition: stable Operative Note - Mark Watson MD - 03/06/2021 1:00 AM CDT [facility] PATIENT NAME: PADMINI ANDRE DATE OF SERVICE: 03/06/2021 KIERSTEN: [id number] PREOPERATIVE DIAGNOSES: 1. Right knee exed-px-awyp medial compartment and tricompartment arthritis. 2. Peripheral vascular disease. POSTOPERATIVE DIAGNOSES: 1. Right knee avbk-[id number] medial compartment and tricompartment arthritis. 2. Peripheral vascular disease. PROCEDURE: Right total knee arthroplasty, DePuy Attune components, 6 femur, cruciate-retaining 6 tibia, 7-mm insert with 38 patella. SURGEON: Mark Watson MD. PHARMACY OPERATIONS COORDINATOR: HAY Soto, who was needed for assistance with positioning, instrumentation, retraction, dressing, and closure. No qualified resident available. 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 HisABIs are acceptable, but we have discussed with vascular, and we will not use a tourniquet unless absolutely needed. Additionally, he did have an elevated white count without a source, but the day of the surgery, he did disclose he has had some draining of what sounds like a pilonidal cyst that has been intermittent for 4 years. He deferred on excision due to the morbidity and recovery. He did have drainage last week, but it sealed. There is no sign of infection. He has never had systemic complaints with it. We have discussed the relative risks of infection, low risk but still a consideration and level of uncertainty. Since it is not draining, he would like to proceed. He is so limited by his knee, understanding a slightly higher risk if this pilonidal cyst becomes an issue acutely. PROCEDURE: The patient had mild hypotension just prior to anesthesia. It recovered appropriately.Spinal anesthetic was done without complication. The right leg was prepped and draped in the usual sterile fashion, and multidisciplinary time-out was done. Midline incision through the skin and subcutaneous tissue, bleeders cauterized. Medial parapatellar arthrotomy obtained. Patella subluxed. Eburnated bone medially and secondary patellar changes. Removed osteophytes. Intramedullary guide, cut 9 mm off the distal femur. I actually added a couple more millimeters due to a modest cut. He hada mild flexion contracture. I then delivered the tibia anteriorly. Extramedullary guide assessed for a tibial cut, which made a neutral cut. My extension gap was well balanced. I then assessed the femur, and 3-degree external corresponded to my marked epicondylar axis, Whitesides line, and assessment of flexion gap. Cut anterior, posterior, and chamfer cuts, sulcus cutting guide applied. Did a trial reduction with a 6, had good extension and flexion, well balanced varus, valgus. Drilled the fixation pegs for the femur. I had marked my rotation. I placed a 6 tibia that covered the tibia appropriately and could maintain rotation without overhang of the lateral plateau. I removed medial osteophytes, pinned it, reamed and broached for the stem, and trialed with a 7-mm insert, which also gave good extension, flexion, and well balanced. I then assessed the patella, whichwas 25-mm thickness, cut with a cutting guide, recreated 25-mm thickness with a 38 patella. Trackingwas appropriate. We then removed the trial implants. Marcaine pain cocktail in the posterior and anterior capsular structures. We were able to get good hemostasis of the bone. Jet lavage and drying the bones and then sequentially cementing the tibia, cementing the femur, placed an 8-mm insert for compression and maintained it in extension until the cement had cured, cemented the patella, maintained it with a patellar clamp. Dilute Betadine wash was done. I did put a small bone plug in the femur. After the cement had cured, assessed trial reduction with a 7, which gave good extension, flexion, and well balanced. I elected the 7-mm insert, which I seated. Irrigated this out. Closure was done of the medial parapatellar arthrotomy with interrupted simple and fcxcpe-ls-jibug #1 Vicryl. Extensor mechanism was intact to flexion and extension. Subcutaneous 2-0 Stratafix, Prineo and Dermabond applied. Sterile dressing placed. The patient was taken to the recovery room without apparent intraoperative complication. POSTOPERATIVE PLAN: Routine total knee arthroplasty rehab and course and will anticipate followup in [place]. Mark Watson MD Receipt: [id number] Trans ID: [id number] TRANSFORMATION SPECIALIST CST documented in this encounter Plan of Treatment Date Type Specialty Care Team Description 03/21/2021 Office Visit Internal Medicine Viraj Farris, DO [address] [place] [address] [phone] 04/09/2021 Office Visit Orthopedics Mark Watson MD [facility] [place], [place] [address] [phone] Name Type Priority Associated Diagnoses Date/Ti me TISSUE EXAM PATH Routine Primary osteoarthritis of ri ght 03/06/2021 7:36 AM CDT knee PVD (peripheral vascular dis ease) (HCC) Name Type Priority Associated Diagnoses Order S chedule TISSUE EXAM PATH Routine Primary osteoarthritis of ri ght Release Upon Ordering for 1 knee Occurrences starting PVD (peripheral vascular disease) (HCC) documented as of this encounter Implants Implanted Type Area Steward/Stewardess Wine Device Shelf Model / Identifier Expiration Serial / Date Lot Stnt Protege 8x100 120cm N [id number] Cardiovascular E V3 09/12/2016 / Implanted: 04/20/2014 by Luis Dunn MD (Quantity not on file ) / Explanted: (Quantity not on file) [id number] Stnt Visi-04/20/2014 Cardiovascular EV3 12/22 / Implanted: 04/20/2014 by Luis Dunn MD (Quantity not on file ) / Explanted: (Quantity not on file) [id number] Stnt Xience Alpine Rx 3.5x38mm N [id number] Ea (Aka 11 [id number])-04/22/2015 Cardiovascular VILLEGAS / Implanted: 04/22/2015 by Lance Blanca MD (Quantity not on file) / [id number] Stnt Xience Alpine Rx 3.0x38mm N [id number] Ea (Aka 11 [id number])-04/22/2015 Cardiovascular VILLEGAS / Implanted: 04/22/2015 by Lance Blanca MD (Quantity not on file) / [id number] Stnt Xience Alpine Rx 3.5x38mm N [id number] Ea (Aka 11 [id number])-04/22/2015 Cardiovascular VILLEGAS / Implanted: 04/22/2015 by Lance Blanca MD (Quantity not on file) / [id number] Mesh Prolite Plug Onlay 1.5in N Bx5/Ea - [id number] General Implant Left: MAQUET 09/22/2019 / Implanted: Qty: 1 on 01/22/2015 by Mark Skinner MD at [facility] / [id number] Cmnt Bone Simplex Tobramyacin N [id number] Bx10/Ea1 - [id number] Tissue Synthetic Right: BRIA 03/23/2022 [id number] / Implanted: Qty: 1 on 03/06/2021 by Mark Thomas MD at [facility] KNEE / [id number] Knee Ptla Dome Cmnt Attune 38 N 151 Ea1 - [id number] Total Jt Knee Right: [employer] 01/21/2026 151 / Implanted: Qty: 1 on 03/06/2021 by Mark Thomas MD at [facility] KNEE / [id number] Knee Tib Base Fb Cmnt S+ Sz6 N 150 Ea1 - [id number] Total Jt Knee Right: [employer] 12/21/2030 150 / Implanted: Qty: 1 on 03/06/2021 by Mark Thomas MD at [facility] KNEE / [id number] Knee Fem Cr Cmnt Attune Rt Sz6 N Ea1 - [id number] Total Jt Knee Right: [employer] 12/21/2030 150 / Implanted: Qty: 1 on 03/06/2021 by Mark Thomas MD at [facility] KNEE / [id number] Knee Tib Insrt Cr Attune Sz6 7 N 151 Ea1 - [id number] Total Jt Knee Right: [employer] 02/20/2025 [id number] / Implanted: Qty: 1 on 03/06/2021 by Mark Thomas MD at [facility] KNEE / [id number] Stnt Protege [id number] 120cm N Prb35-08/04/2013 Vascular EV3 08/02/2015 / Implanted: 08/04/2013 (Quantity not on file) / Explanted: (Quantity not on file) [id number] Stnt Visi-08/04/2013 Vascular EV3 09/09/2014 / Implanted: 08/04/2013 (Quantity not on file) / Explanted: (Quantity not on file) [id number] Stnt Protege [id number] 120cm N Prb35-10/13/2013 Vascular EV3 07/25/2016 / Implanted: 10/13/2013 (Quantity not on file) / Explanted: (Quantity not on file) [id number] Patch Vascuguard 0.8x8cm N [id number] Ea1 - [id number] R ight: ROMEO 12/09/2022 [id number] / Implanted: Qty: 1 on 06/22/2018 by Wild Chao cht, DO at [facility] [id number] 11 / [id number] documented as of this encounter Procedures Procedure Name Priority Date/Time Associated Diagnosis Comme nts HEMOGLOBIN Routine 03/07/2021 5:43 Results for this AM CDT procedure are i n the results section. BASIC METABOLIC Routine 03/07/2021 5:43 Results for this PANEL AM CDT procedure are i n the results section. NERVE BLOCK Routine 03/06/2021 11:43 Results for this AM CDT procedure are i n the results section. GLUCOSE BY METER, Routine 03/06/2021 10:34 Result s for this POCT AM CDT procedure are i n the results section. XRAY KNEE 1-2 VIEWS Routine 03/06/2021 9:33 Resu lts for this RT AM CDT procedure are i n the results section. GLUCOSE BY METER, Routine 03/06/2021 9:13 Result s for this POCT AM CDT procedure are i n the results section. ARTHROPLASTY KNEE 03/06/2021 6:33 Primary osteoarthri tis AM CDT of right knee PVD (peripheral vascular disease) (HCC) Case Notes DEPUY Special Needs *X* per insurance outpatie nt, diabetic GLUCOSE BY METER, POCT Routine 03/06/2021 6:06 AM CDT Results for this procedure are in the resu lts section. documented in this encounter Results BASIC METABOLIC PANEL (03/07/2021 5:43 AM CDT) Pathologist Sig nature Glucose 141 (H) 70 - 99 mg/dL [facility] BUN 17 6 - 22 mg/dL [facility] Creatinine 1.23 0.70 - 1.30 [facility] mg/dL [place] BUN/Creatinine Ratio 13.8 10.0 - 25.0 [facility] Sodium 137 136 - 145 meq/L [facility] Potassium 4.6 3.5 - 5.1 meq/L [facility] Chloride 102 98 - 109 meq/L [facility] CO2 23 20 - 29 meq/L [facility] Anion Gap with K 17 6 - 20 meq/L [facility] Calcium 9.5 8.5 - 10.5 [facility] mg/dL [place] Age 75 Years [facility] eGFR Non- 57 (L) >=60 [facility] mL/min/1.73m2 [place] eGFR 70 >=60 [facility] mL/min/1.73m2 [place] Specimen Blood - Blood specimen (specimen) Performing Organization Address City/[facility]/ZIP Code Phon e Number [facility] [address] [place] [address] HEMOGLOBIN (03/07/2021 5:43 AM CDT) Pathologist Sig nature Hemoglobin 13.9 13.5 - 17.5 g/dL [facility] Specimen Blood - Blood specimen (specimen) Performing Organization Address City/[facility]/ZIP Code Phon e Number [facility] [address] [place], [place] [address] NERVE BLOCK (03/06/2021 11:43 AM CDT) Narrative Performed At Geneva Villalpando MD 03/06/2021 11:45 AM NERVE BLOCK Date/Time: 03/06/2021 11:43 AM Performed by: Geneva Villalpando MD Authorized by: Geneva Villalpando MD Comments: NERVE BLOCK Date Performed: 03/06/2021 Performed by: Geneva Villalpando Start Time: 640 End Time: 647 Procedure: Adductor Canal Block Type: Single Shot Laterality: Right Indication: Post-Op Pain Relief per mendez rgeon request Risks and Benefits: Discussed the risks (including b ut not limited to, bleeding, infection, nerve damage, and intravascular i njections) benefits and alternatives to the procedure Consent: Expressed understanding of the procedure, r isks, benefits and alternatives and wished to proceed. Anesthesia Time Out: There was a time out called imm ediately prior to the procedure to confirm the correct patient, procedure an d laterality. All necessary equipment was available and fu nctioning. Monitoring: Continuous monitory of ECG, Pulse Ox, He art Rate and Blood Pressure throughout procedure,. Positioning: Supine Sedation and Analgesia: 50 mcg Fentany l Pannus Retraction: Not Needed Draping: Draping not needed Disinfectant Used: Skin was sterily pr epped with Chlorhexadine and allowed to dry. Skin Infiltration: Lidocaine 2% Equipment used Ultrasound Regional Needle: Echogenic Needle Gauge: 22g Needle Length: 3 1/8" Technique: Anatomical Landmarks identified, Tissues were visualized with ultrasound, Local given in 5ml increment s with negative aspiration in-between. and Strict sterile technique was maintained throughout. Motor Response: none Lowest Stimulator Current: none mA Catheter: None Dressing: No Dressing Events: None Vital Signs: Please refer to Pre-Procedu re Record Comments: Ultrasound Image recorded and Patient tole rated procedure well Medications: Base Medication: Ropivicaine 0.5% 20 ml Additives: Dexamethasone 10mg/ml 5 m l GLUCOSE BY METER, POCT (03/06/2021 10:34 AM CDT) Pathologist Sig nature Glucose POC 152 (H) 70 - 99 mg/dL [facility] Specimen Blood - Blood specimen (specimen) Performing Organization Address City/State/ZIP Code Phon e Number [facility] [address] [place] [address] XRAY KNEE 1-2 VIEWS RT (03/06/2021 9:33 AM CDT) Specimen Narrative Performed At This result has an attachment that is no t available. [id number] Patient Name: PADMINI ANDRE Date of : 1945 Procedure: XRAY KNEE 1-2 VIEWS RT Date of Service: 03/06/2021 EXAM: XRAY KNEE 1-2 VIEWS RT INDICATION: TKA COMPARISON(S): 09/25/2020 FINDINGS/IMPRESSION: Postoperative park es following right total knee arthroplasty without follow-up complication. Anatomic alignment. Small volume subcutaneous emphysema. Calcified atherosclerotic disease. Finalized by: Addison Clarke MD on 03/06/2021 10:00 AM CDT Patient/Procedure Information: [facility] MRN/KIERSTEN: [id number] Order Number: [id number] Accession Number: [id number] Ordering Provider: CHRISTO FERREIRA Authorizing Provider: CHRISTO FERREIRA Procedure Note Daphnie Espinoza - 03/06/2021 10:03 AM CDT Patient Name: PADMINI ANDRE Date of : 1945 Procedure: XRAY KNEE 1-2 VIEWS RT Date of Service: 03/06/2021 EXAM: XRAY KNEE 1-2 VIEWS RT INDICATION: TKA COMPARISON(S): 09/25/2020 FINDINGS/IMPRESSION: Postoperative park es following right total knee arthroplasty without follow-up complication. Anatomic alignment. Small volume subcutaneous emphysema. Calcified atherosclerotic disease. Finalized by: Addison Clarke MD on 2020 10:00 AM CDT Patient/Procedure Information: [facility] ERSITY MRN/KIERSTEN: [id number] Order Number: [id number] Accession Number: [id number] Ordering Provider: CHRISTO FERREIRA Authorizing Provider: CHRISTO NINA Performing Organization Address City/[facility]/ZIP Code Phon e Number [id number] GLUCOSE BY METER, POCT (03/06/2021 9:13 AM CDT) Pathologist Sig nature Glucose POC 141 (H) 70 - 99 mg/dL [facility] Specimen Blood - Blood specimen (specimen) Performing Organization Address City/[facility]/ZIP Code Phon e Number [facility] [address] [place], [place] [phone] GLUCOSE BY METER, POCT (03/06/2021 6:06 AM CDT) Pathologist Sig nature Glucose POC 185 (H) 70 - 99 mg/dL [facility] Specimen Blood - Blood specimen (specimen) Performing Organization Address City/[facility]/ZIP Code Phon e Number [facility] [address] [place] [phone] documented in this encounter Visit Diagnoses Diagnosis Status post total knee replacement using cement, right - Primary Primary osteoarthritis of right knee Primary localized osteoarthrosis, lower leg PVD (peripheral vascular disease) (HCC) Peripheral vascular disease, unspecified documented in this encounter Discharge Diagnoses Not on filedocumented in this encounter Administered Medications Medication Order MAR Action Action Date Dose Rate Site acetaminophen (TYLENOL) tablet Given 03/07/2021 11:14 AM CDT 650 mg 650 mg 650 mg, Oral, Every six hours, First dose on Glory 03/06/21 at 1200, Until Discontinued, Post - Op, Alternate with tramadol (ULTRAM). Give with HYDROcodone/acetaminophen (NORCO) for total of 650 mg acetaminophen every 6 hours. Adult patients: Total dose of acetaminophen from all acetaminophen containing products should not exceed 4 grams (4000 mg) per day. Pediatric Patients 0 - 3 months: Maximum of 60 mg/kg/24 hours of acetaminophen. Pediatric Patients older than 3 months: Maximum of 75 mg/kg/24 hours of acetaminophen (Never exceeding 4 grams/day). Given 03/07/2021 5:32 AM CDT 650 mg Given 03/06/2021 11:41 PM CDT 650 mg amLODIPine (NORVASC) tablet 10 mg Given 03/06/2021 8:28 PM CDT 10 mg 10 mg, Oral, Bedtime, First dose on Glory 03/06/21 at 2100, Until Discontinued, Hold for SBP less than 120 apixaban (ELIQUIS) tablet 5 mg Given 03/07/2021 8:27 AM CDT 5 mg 5 mg, Oral, Two times a day, First dose on Wed03/07/21 at 0800, Until Discontinued aspirin enteric coated tablet 81 mg Given 03/07/2021 8:27 AM CDT 81 mg 81 mg, Oral, DAILY, First dose on Wed03/07/21 at 0900, Until Discontinued, Tablet should be swallowed whole and not be divided, crushed or chewed. calcium carbonate (TUMS) chewable tablet 500 Given 11:14 AM CDT 500 mg mg 500 mg, Oral, Four times a day prn, Starting on Wed03/07/21 at 0818, Until Discontinued, indigestion carVEDilol (COREG) tablet 18.75 mg Given 03/07/2021 8:26 AM CDT 18.75 mg 18.75 mg, Oral, Two times a day with meals, First dose on Glory 03/06/21 at 1730, Until Discontinued, Take with food. Hold for SBP less than 100 Hold for HR less than 60 docusate sodium (COLACE) capsule 100 mg Given 03/07/2021 8:30 AM CDT 100 mg 100 mg, Oral, Two times a day, First dose on Wed03/06/21 at 2100, Until Discontinued, Post - Op, Swallow cap whole. Should not be crushed or chewed Given 03/06/2021 8:28 PM CDT 100 mg oxyCODONE (OXY-IR) tablet 5-10 mg Given 03/07/2021 3:42 PM CDT 10 mg 5-10 mg, Oral, Every four hours prn, Starting on Glory 03/06/21 at 1017, Until Discontinued, moderate pain, severe pain, Post - Op, For patients with moderate pain, pain rating of 4-6, give oxyCODONE 5 mg PO every 4 hours PRN. For patients with severe pain, pain rating of 7-10, give oxyCODONE 10 mg PO every 4 hours PRN. Given 03/07/2021 8:27 AM CDT 10 mg pravastatin (PRAVACHOL) tablet 10 mg Given 03/07/2021 8:27 AM CDT 10 mg 10 mg, Oral, DAILY, First dose on Wed03/07/21 at 0900, Until Discontinued sodium chloride 0.9% flush (adult) 10 mL Given 03/07/2021 8:29 AM CDT 10 mL 10 mL, IV, Two times a day and prn, First dose on Wed03/06/21 at 1020, Until Discontinued, 10 mL, Post - Op, Flush IV line as scheduled and as often as necessary before and after meds. Medication Order MAR Action Action Date Dose Rate Site acetaminophen (TYLENOL) tablet Given 03/06/2021 6:16 AM CDT 1,0 00 mg 1,000 mg 1,000 mg, Oral, Pre-op, 1 dose, On Wed03/06/21 at 0545, Pre - Op, Adult patients: Total dose of acetaminophen from all acetaminophen containing products should not exceed 4 grams (4000 mg) per day. Pediatric Patients 0 - 3 months: Maximum of 60 mg/kg/24 hours of acetaminophen. Pediatric Patients older than 3 months: Maximum of 75 mg/kg/24 hours of acetaminophen (Never exceeding 4 grams/day). ceFAZolin (ANCEF) 2000 mg/20 mL sterile Given 03/06/2021 11:41 P M CDT 2,000 mg water IV syringe 2,000 mg, IV, Every eight hours, 2 doses, First dose on Glory 03/06/21 at 1600, Last dose on Wed03/07/21 at 0000, 20 mL, PACU - Continue Post-Op, Administer as IV push over 4 minutes. Given 03/06/2021 5:20 PM CDT 2,000 mg dexAMETHasone sodium phosphate 5 mg in Given 03/06/2021 6:41 AM CDT ropivacaine 0.5 % 100 mg Peripheral Nerve Block Injection Syringe Perineural, Now, 1 dose, On Glory 03/06/21 at 0635, 20.5 mL, Pre - Op, Inject 5-10 mL per administration as directed by Anesthesia with a total maximum of 40 mL fentaNYL 100 mcg/2 mL preservative free Given 03/06/2021 6:41 A M CDT 50 mcg injection solution 25-100 mcg 25-100 mcg, IV, Every five minutes prn, 3 doses, Starting on Glory 03/06/21 at 0631, Until Glory 03/06/21 at 0848, other (Specify), analgesia during procedure, 2 mL, Pre - Op, Fentanyl 25-100 mcg q 5 min prn over the next 2 hours to a MAX of 300 mcg as needed for analgesia during procedure gabapentin (NEURONTIN) capsule 600 mg Given 03/06/2021 6:16 AM CDT 600 mg 600 mg, Oral, Pre-op, 1 dose, On Glory 03/06/21 at 0545, Pre - Op, 1 dose prior to surgery lactated ringers IV solution Restarted 03/06/2021 8:42 AM CDT IV, at 25 mL/hr, Continuous, Starting on Glory 03/06/21 at 0650, Until Glory 03/06/21 at 0848, 1,000 mL, Pre - Op Now New Bag 03/06/2021 7:46 AM CDT 300 mL/hr Rate Change 03/06/2021 7:00 AM CDT 600 mL/hr sodium chloride 0.9% IV solution New Bag 03/06/2021 10:27 AM CDT 75 mL/hr IV, at 75 mL/hr, Continuous, Starting on Glory 03/06/21 at 1020, Until Glory 03/06/21 at 2355, 1,000 mL, Post - Op traMADol (ULTRAM) tablet 100 mg Given 03/06/2021 6:15 AM CDT 100 mg 100 mg, Oral, Pre-op, 1 dose, On Glory 03/06/21 at 0545, Pre - Op, Recommended maximum daily dose of tramadol = 400 mg. Recommended maximum daily dose in patients 75 years or older = 300 mg. documented in this encounter Active and Recently Administered Medications Times are shown in CDT. Medication Order 03/05/2021 03/06/2021 03/07/2021 acetaminophen (TYLENOL) tablet 1,000 mg (COMPLETED) 0616 (Given - Provider: Sandra Broderick RN) 1,000 mg, Oral, Pre-op, 1 dose, On Glory 1 at 0545, Pre - Op, Adult patients: Total dose of acetaminophen from all acetaminophen containing products should not exceed 4 grams (4000 mg) per day. Ped iatric Patients 0 - 3 months: Maximum o f 60 mg/kg/24 hours of acetaminophen. Pediatric Patients older than 3 months: Maximum of 75 mg/kg/24 hours of acetaminophen (Never exceeding 4 grams/day). acetaminophen (TYLENOL) tablet 650 mg 12 41 (Given - Provider: Joanne Juarez RN)1720 (Given - Provider: Jackeline Pinto, GHANSHYAM)2341 (Given - Provider: Lilia Álvarez, GHANSHYAM) 0532 (Given - Provider: Lilia Álvarez, GHANSHYAM )1114 (Given - Provider: Janet Taylor RN)1800 (Due) 650 mg, Oral, Every six hours, First dos e on Glory 03/06/21 at 1200, Until Discontinued, Post - Op, Alternate with tramadol (ULTRAM). Give with HYDROcodone/acetaminophen (NORCO) for total of 650 mg acetam inophen every 6 hours. Adult patients: Total dose of acetaminophen from all acetaminophen containing products should not exceed 4 grams (4000 mg) per day. Pediatric Patients 0 - 3 months: Maximum of 60 mg/kg/24 hours of acetaminophen. Ped iatric Patients older than 3 months: Maximum of 75 mg/kg/24 hours of acetaminophen (Never exceeding 4 grams/day). amLODIPine (NORVASC) tablet 10 mg 2027 (Given - Provider: Lilia Álvarez RN) 2100 (Due) 10 mg, Oral, Bedtime, First dose on Wed03/06/21 at 2100, Until Discontinued, Hold for SBP less than 120 apixaban (ELIQUIS) tablet 5 mg 0 827 (Given - Provider: Janet Taylor RN)2000 (Due) 5 mg, Oral, Two times a day, First dose on Wed03/07/21 at 0800, Until Discontinued aspirin enteric coated tablet 81 mg 08 (Given - Provider: Janet Taylor RN) 81 mg, Oral, DAILY, First dose on Wed at 0900, Until Discontinued, Tablet should be swallowed whole and not be divided, crushed or chewed. carVEDilol (COREG) tablet 18.75 mg 171 (Held - Provider: Jackeline Pinto RN - Comment: Pulse 55) 0826 (Given - Provider: Carmen Bella N)1730 (Due) 18.75 mg, Oral, Two times a day with connor ls, First dose on Wed03/06/21 at 1730, Until Discontinued, Take with food. Hold for SBP less than 100 Hold for HR less than 60 ceFAZolin (ANCEF) 2000 mg/20 mL sterile water IV syringe (CO MPLETED) 0722 (Given - Provider: Indy Gama APRN-[employer] ASSEMBL[employer] MACHINE OPERATOR) 2,000 mg, IV, Give in OR, 1 dose, On Wed03/06/21 at 0545, 20 mL, Pre - Op, Give in PROCEDURAL area. Start within 1 hour of cut time and complete prior to cut time. Administer as IV push over 4 minutes. ceFAZolin (ANCEF) 2000 mg/20 mL sterile water IV syringe (CO MPLETED) 1720 (Given - Provider: Jackeline Pinto RN)2341 (Given - Provider: Lilia Álvarez RN) 2,000 mg, IV, Every eight hours, 2 doses , First dose on Wed03/06/21 at 1600, Last dose on Wed03/07/21 at 0000, 20 mL, PACU - Continue Post-Op, Administer as IV push over 4 minutes. dexAMETHasone sodium phosphate 5 mg in r opivacaine 0.5 % 100 mg Peripheral Nerve Block Injection Syringe (COMPLETED) 0618 (Given - Provider: Geneva Villalpando MD) Perineural, Now, 1 dose, On Glory 03/06/21 at 0635, 20.5 mL, Pre - Op, Inject 5-10 mL per administration as directed by Anesthesia with a total maximum of 40 mL docusate sodium (COLACE) capsule 100 mg 2027 (Given - Provider: Lilia Álvarez, GHANSHYAM) 08 (Given - Provider: Carmen Bella)2100 (Due) 100 mg, Oral, Two times a day, First dos e on Glory 03/06/21 at 2100, Until Discontinued, Post - Op, Swallow cap whole. Should not be crushed or chewed gabapentin (NEURONTIN) capsule 600 mg (COMPLETED) 615 (Given - Provider: Sandra Broderick RN) 600 mg, Oral, Pre-op, 1 dose, On Glory at 0545, Pre - Op, 1 dose prior to surgery ondansetron (ZOFRAN) injection solution 4 mg (COMPLETED) 727 (Given - Provider: Indy Gama APRN-[employer] MACHINE OPERATOR) 4 mg, IV, Give in OR, 1 dose, On Glory at 0545, 2 mL, Intra - Op, Administer at the end of the case = 15 minutes prior to closure If preference is to further dilute for IV administration: First d raw up patient-specific dose, then dilute to 10 mL with 0.9% sod ium chloride. pravastatin (PRAVACHOL) tablet 10 mg 826 (Given - Provider: Janet Taylor RN) 10 mg, Oral, DAILY, First dose on Wed03/07/21 at 0900, Until Di scontinued sodium chloride 0.9% flush (adult) 10 mL 1057 (Not Given - Provider: Joanne Juarez RN - Reason: Not Given - Comment: iv fluids running)2028 (Not Indicated - Provider: Lilia Álvarez RN - Comment: iv infusing) 828 (Given - Provider: Janet Taylor RN)2099 (Due) 10 mL, IV, Two times a day and prn, Firs t dose on Glory 03/06/21 at 1020, Until Discontinued, 10 mL, Post - Op, Flush IV line as scheduled and as often as necessary before and after meds. traMADol (ULTRAM) tablet 100 mg (COMPLETED) 0615 (Given - Provider: Sandra Broderick, RN) 100 mg, Oral, Pre-op, 1 dose, On Glory at 0545, Pre - Op, Recommended maximum daily dose of tramadol = 400 mg. Recommended maximum daily dose in patients 75 years or older = 300 mg. Medication Order 03/05/2021 03/06/2021 03/07/2021 lactated ringers IV solution (CANCELED) 0620 (New Bag/Tubing - Provider: Sandra Broderick, RN)0700 (Rate Change - Provider: RONALD SchaeferSHOTGUN SHELL ASSEMBLY MACHINE OPERATOR)0746 (New Bag - Provider: RONALD SchaeferSHOTGUN SHELL ASSEMBLY MACHINE OPERATOR)0841 (Paused - Provider: JADE Paz - Comment: Switch to gravity) IV, at 25 mL/hr, Continuous, Starting on Glory 03/06/21 at 0650, Until Glory 03/06/21 at 0848, 1,000 mL, Pre - Op Now 0842 (Restart ed - Provider: JADE Paz) sodium chloride 0.9% IV solution (CANCELED) 1027 (New Bag - Provider: Joanne Juarez, GHANSHYAM)2346 (Stopped - Provider: Lilia Álvarez RN) IV, at 75 mL/hr, Continuous, Starting on Glory 03/06/21 at 1020, Until Glory 03/06/21 at 2355, 1,000 mL, Post - Op Medication Order 03/05/2021 03/06/2021 03/07/2021 benzocaine-menthol (CEPACOL w/ BENZOCAINE) lozenge 1 lozenge 1 lozenge, Mouth/Throat, Every four hour s prn, Starting on Glory 03/06/21 at 1017, Until Discontinued, sore throat, other (Specify), throat irritation, Post - Op, Exception: Patients with dysphagia, radia tion mucositis/esophagitis or without a gag reflex. bisacodyl (DULCOLAX) enteric coated tablet 5 mg 5 mg, Oral, Two times a day prn, Startin g on Glory 03/06/21 at 1017, Until Discontinued, constipation, Post - Op, SECOND choice or per patient preference bisacodyl (DULCOLAX) suppository 10 mg 10 mg, Rectal, One time a day prn, Start ing on Wed03/06/21 at 1017, Until Discontinued, constipation, Post - Op, THIRD choice or per patient preference. If patient cannot take oral medications, use first for constipation. calcium carbonate (TUMS) chewable tablet 500 mg 1114 (Given - Provider: Janet Taylor RN) 500 mg, Oral, Four times a day prn, Star ting on Wed03/07/21 at 0818, Until Discontinued, indigestion clonazePAM (klonoPIN) tablet 0.5 mg 0.5 mg, Oral, Bedtime prn, Starting on 03/06/21 at 1143, Until Discontinued, insomnia, If unable to administer dose intact, wear universal precautions (one pair of gloves). diphenhydrAMINE (BENADRYL) injection solution 25 mg 25 mg, IV, Every four hours prn, Startin g on Wed03/06/21 at 1017, Until Discontinued, itching, 0.5 mL, Post - Op, May repeat 4 times If preference is to further dilute for IV administration: First draw up patient-specific dose, then dilute to 10 mL with 0.9% sodium chloride. fentaNYL 100 mcg/2 mL preservative free injection solution 25-100 mcg (CANCELED) 0641 (Given - Provider: Ayana Abreu RN) 25-100 mcg, IV, Every five minutes prn, 3 doses, Starting on Wed03/06/21 at 0631, Until Wed03/06/21 at 0848, other (Specify), analgesia during procedure, 2 mL, Pre - Op, Fentanyl 25-100 mcg q 5 min pr n over the next 2 hours to a MAX of 300 mcg as needed for analgesia during procedure fentaNYL 100 mcg/2 mL preservative free injection solution 75 mc g 75 mcg, IV, Every thirty minutes prn, St arting on Wed03/06/21 at 1017, Until Discontinued, severe pain, 1.5 mL, Post - Op, If pain unrelieved by oxyCODONE magnesium hydroxide (MILK OF MAGNESIA) oral suspension 30 mL 30 mL, Oral, Two times a day prn, Starti ng on Wed03/06/21 at 1017, Until Discontinued, constipation, 30 mL, Post - Op, FIRST choice or per patient preference. Exception: Nephrology/renal patients nalOXone (NARCAN) injection solution (vial) 0.2 mg 0.2 mg, Injection, Every two minutes prn , Starting on Glory 03/06/21 at 1017, Until Discontinued, other (Specify), opioid induced respiratory depression - PARTIAL reversal, 0.5 mL, Post - Op, PARTIAL REVE RSAL/RESPIRATORY DEPRESSION If respirato ry rate less than 8/minute - call rapid response and administer (until respiratory rate increases to 10/minute). Give IV (preferred), IM or SUBQ nalOXone (NARCAN) injection solution (vial) 0.4 mg 0.4 mg, Injection, Every two minutes prn , Starting on Glory 03/06/21 at 1017, Until Discontinued, other (Specify), opioid induced respiratory arrest - FULL reversal, 1 mL, Post - Op, FULL REVERSAL/RESPIRA TORY ARREST If patient is not breathing - call CODE BLUE and administer. Give IV (preferred), IM or SUBQ nitroglycerin (NITROSTAT) sublingual tablet 0.4 mg 0.4 mg, Sublingual, Every five minutes p rn, Starting on Glory 03/06/21 at 1143, Until Discontinued, chest pain, At onset of chest pain, dissolve one tablet under tongue. May repeat every 5 minutes for 3 doses. Do not crush or chew. omeprazole (priLOSEC) capsule 20 mg 20 mg, Oral, One time a day prn, Startin g on Glory 03/06/21 at 1143, Until Discontinued, heartburn, Swallow whole; do not chew or crush. Capsule may be opened and contents mixed with 1 tablespoon of apple sauce. Swallow immediately with a glass of cool water; mixture should not be chewed, crushed, warmed, or saved for future use. ondansetron (ZOFRAN) injection solution 4 mg 4 mg, IV, Every four hours prn, Starting on Glory 03/06/21 at 0849, Until Discontinued, nausea, vomiting, 2 mL, PACU - Continue Post-Op, Use FIRST for nausea/vomiting. If ineffective after 15 minutes use haloperidol if ordered for nausea/vomiti ng. If preference is to further dilute for IV administration: First draw up patient-specific dose, then dilute to 10 mL with 0.9% sodium chloride. oxyCODONE (OXY-IR) tablet 5-10 mg 0827 (Given - Provider: Janet Taylor RN)1542 (Given - Provider: Marvin Dye RN) 5-10 mg, Oral, Every four hours prn, Sta rting on Glory 03/06/21 at 1017, Until Discontinued, moderate pain, severe pain, Post - Op, For patients with moderate pain, pain rating of 4-6, give oxyCODONE 5 mg PO every 4 hours PRN. For patients wit h severe pain, pain rating of 7-10, give oxyCODONE 10 mg PO every 4 hours PRN. ropivacaine (NAROPIN) 35 mg, ketorolac ( TORADOL) 15 mg, EPINEPHrine (ADRENALIN) 0.25 mg, morphine sulfate (PF) (DURAMORPH) 5 mg in sodium chloride 0.9% 50 mL (multimodal syringe) (CANCELED) 0802 (Given - Provider: Susana Watson MD) INTRAOP, Starting on Glory 03/06/21 at 080 2, Until Glory 03/06/21 at 0847, 50 mL, Intra - Op ropivacaine (NAROPIN) 35 mg, ketorolac ( TORADOL) 15 mg, EPINEPHrine (ADRENALIN) 0.25 mg, morphine sulfate (PF) (DURAMORPH) 5 mg in sodium chloride 0.9% 50 mL (multimodal syringe) (CANCELED) 0838 (Given - Provider : HAY Castillo) INTRAOP, Starting on Glory 03/06/21 at 083 8, Until Glory 03/06/21 at 0847, 50 mL, Intra - Op tranexamic acid (CYKLOKAPRON) injection (CANCELED) 0839 (Given - Provider: HAY Castillo) INTRAOP, Starting on Glory 03/06/21 at 083 9, Until Glory 03/06/21 at 0847, Intra - Op documented in this encounter
== END 2021-03-08 13:30 | disposition home or self-care (01) ==
LOC: VM.ED 12:17
DX: L76.22 Postprocedural hemorrhage of skin and subcutaneous tissue following other procedure (principal); I48.91 Unspecified atrial fibrillation; I25.10 Atherosclerotic heart disease of native coronary artery without angina pectoris; I10 Essential (primary) hypertension; I25.2 Old myocardial infarction; K21.9 Gastro-esophageal reflux disease without esophagitis; Z79.02 Long term (current) use of antithrombotics/antiplatelets; Z79.82 Long term (current) use of aspirin; Z79.899 Other long term (current) drug therapy
CPT/HCPCS: 99283

== ENCOUNTER 2021-03-09 16:02 | Emergency (ER) | payer MEDICARE, OTHER ==
--- NOTE | 2021-03-09 17:03 | EDM.PDOC ---
ED HPI GENERAL MEDICAL PROBLEM - General Stated Complaint: POST KNEE SURGERY Time Seen by Provider: 03/09/21 16:45 Source of Information: Reports: Patient, Family - History of Present Illness INITIAL COMMENTS - FREE TEXT/NARRATIVE: Yohannes is a 75 y/o male who comes to the ER to have his right knee surgical dressing looked at. He had a total knee done on by Dr Colbert. He was then discharged to home Wednesday. He is on Eliquis. He came to the ER yesterday because his surgical dressing was saturated after he had done some exercises. Today the dressing that was applied in the ER is completely saturated and he has not done the exercises like he had done yesterday. No fever. He wisdom snot go back to see Dr Roma Farris for a post op check until 03/18. Right Knee Pain Score (Numeric/FACES): 4 - Related Data Allergies Allergy/AdvReac Type Severity Reaction Status Date / Time No Known Allergies Allergy Verified 03/09/21 17:42 Home Meds: Home Meds Clopidogrel [Plavix] 75 mg PO DAILY 05/10/13 [History] Multivitamin with Minerals [Multiple Vitamin] 1 tab PO DAILY 05/10/13 [History] Nitroglycerin [Nitrostat] 0.4 mg SL ASDIRECTED PRN 05/10/13 [History] amLODIPine [Norvasc] 10 mg PO DAILY 05/10/13 [History] carvediloL [Coreg] 12.5 mg PO BID 05/10/13 [History] lisinopriL [Prinivil] 20 mg PO DAILY 05/10/13 [History] ALPRAZolam [Xanax] 0.25 mg PO BEDTIME PRN 01/28/15 [History] Omeprazole [Prilosec] 20 mg PO DAILY PRN 01/28/15 [History] Aspirin [Halfprin] 81 mg PO DAILY 11/02/16 [History] Pravastatin Sodium 10 mg PO DAILY 11/02/16 [History] Melatonin 3 mg PO BEDTIME 11/10/17 [History] Past Medical History HEENT History: Reports: None Cardiovascular History: Reports: Afib, CAD, High Cholesterol, Hypertension, [place], PVD Other Cardiovascular History: stemi. ventricular tachy. external iliac artrery thrombosis. femoral bruit. coronary stent thrombosis Respiratory History: Reports: Sleep Apnea Gastrointestinal History: Reports: GERD, PUD Genitourinary History: Reports: None Musculoskeletal History: Reports: None Neurological History: Reports: None Psychiatric History: Reports: Other (See Below) Other Psychiatric History: insomnia Endocrine/Metabolic History: Reports: Other (See Below) Other Endocrine/Metabolic History: hyperglycemia Hematologic History: Reports: None Immunologic History: Reports: None Oncologic (Cancer) History: Reports: None Dermatologic History: Reports: None - Past Surgical History Head Surgeries/Procedures: Reports: None HEENT Surgical History: Reports: None Cardiovascular Surgical History: Reports: Cardiac Ablation, Carotid Stents, Other (See Below) Other Cardiovascular Surgeries/Procedures: angiogram GI Surgical History: Reports: Appendectomy, Hernia, Inguinal Musculoskeletal Surgical History: Reports: None Oncologic Surgical History: Reports: None Review of Systems - Review of Systems Review Of Systems: See Below Constitutional: Reports: No Symptoms Eyes: Reports: No Symptoms Ears: Reports: No Symptoms Nose: Reports: No Symptoms Mouth/Throat: Reports: No Symptoms Respiratory: Reports: No Symptoms Cardiovascular: Reports: No Symptoms GI/Abdominal: Reports: No Symptoms Genitourinary: Reports: No Symptoms Musculoskeletal: Reports: Other (Right surgical wound oozing) Skin: Reports: No Symptoms Neurological: Reports: No Symptoms Psychiatric: Reports: No Symptoms ED EXAM, GENERAL - Physical Exam Exam: See Below General Appearance: Alert, WD/WN, No Apparent Distress (Elderly male, sitting in wheelchair.) Ears: Hearing Grossly Normal Nose: Normal Inspection, Normal Mucosa Throat/Mouth: Normal Voice Head: Atraumatic, Normocephalic Respiratory/Chest: No Respiratory Distress GI/Abdominal: Soft (Male) Exam: Deferred Rectal (Males) Exam: Deferred Extremities: Other (Note vertical incision to right knee is intact, knee is mildly warm but no redenss appreciated, swollen slightly.) Neurological: Alert, Oriented, CN II-XII Intact, No Motor/Sensory Deficits Psychiatric: Normal Affect Skin Exam: Warm, Dry, Intact, Normal Color, No Rash Course - Vital Signs Text/Narrative:: 1644 The patinet was seen by the DETECTIVE AND INTELLIGENCE ANALYST. Old dressing was removed and incision monitored. Very small amt of ozzing noted from small area in middle of incision but seems more serosanguineous in nature. CBC ordered since the joint felt warm. 1744 CBC results reviewed. Wound redressed with ABD and Kerlix. Written instructions given and the patient lefty the ER in stable condition. Last Recorded V/S: Last Vital Signs Temp 36.9 C 03/09/21 16:02 Pulse 85 03/09/21 16:02 Resp 14 03/09/21 16:02 BP 138/74 03/09/21 16:02 Pulse Ox 98 03/09/21 16:02 - Orders/Labs/Meds Labs: Laboratory Tests 03/09/21 Range/Units 17:09 WBC 11.8 H (4.0-10.0) x10^3/uL RBC 4.19 L (4.5-6.0) x10^6/uL Hgb 13.1 L (14.0-18.0) g/dL Hct 39.4 L (40.0-52.0) % MCV 94.0 H (78.0-93.0) fL MCH 31.3 (26.0-32.0) pg MCHC 33.2 (32.0-36.0) g/dL RDW Coeff of Teena 12.1 (10.0-15.0) % Plt Count 280 (130-400) x10^3/uL Immature Gran % (Auto) 0.80 H (0.00-0.43) % Neut % (Auto) 79.5 (50.0-80.0) % Lymph % (Auto) 7.3 L (25.0-50.0) % [place] % (Auto) 10.3 (2.0-11.0) % Eos % (Auto) 1.6 (0.0-4.0) % Baso % (Auto) 0.5 (0.2-1.2) % Neut # (Auto) 9.4 H (1.8-7.7) x10^3/uL Lymph # (Auto) 0.9 L (1.0-4.8) x10^3/uL [place] # (Auto) 1.2 H (0.0-0.8) x10^3/uL Eos # (Auto) 0.2 (0.0-0.5) x10^3/uL Baso # (Auto) 0.1 (0.0-0.2) x10^3/uL Immature Gran # (Auto) 0.09 H (0.00-0.07) x10^3/uL Departure - Departure Time of Disposition: 17:43 Disposition: DC/Tfer W/I Hosp To Swing 61 Condition: Good Clinical Impression: Status post total right knee replacement - Discharge Information Instructions: How to Change Your Wound Dressing, [id number] Additional Instructions: -Reinforce dressing as needed -Call Orthopedics if the drainage continues -Resume all post op cares as instructed Sepsis Event Note (ED) - Focused Exam Vital Signs: Vital Signs Temp Pulse Resp BP Pulse Ox 03/09/21 16:02 36.9 C 85 14 138/74 98 - Problem List & Annotations (1) Status post total right knee replacement SNOMED Code(s): 9076700083450, [id number] Code(s): Z96.651 - PRESENCE OF RIGHT ARTIFICIAL KNEE JOINT Status: Acute Current Visit: Yes Annotation/Comment:: Wound redressed - Problem List Review Problem List Initiated/Reviewed/Updated: Yes - Assessment/Plan Plan: See above
[2021-03-09 17:39] VITALS: BP 138/74; PULSE 85
== END 2021-03-09 17:52 | disposition home or self-care (01) ==
LOC: VM.ED 16:02
DX: Z48.01 Encounter for change or removal of surgical wound dressing (principal); I48.91 Unspecified atrial fibrillation; I25.10 Atherosclerotic heart disease of native coronary artery without angina pectoris; I10 Essential (primary) hypertension; I25.2 Old myocardial infarction; K21.9 Gastro-esophageal reflux disease without esophagitis; Z79.899 Other long term (current) drug therapy; Z79.82 Long term (current) use of aspirin; Z96.651 Presence of right artificial knee joint
CPT/HCPCS: 36415; 85025; 99283; 99284